=== PATIENT | male | born 1930 | race Caucasian/White ===

== ENCOUNTER → 2017-03-01 | Outpatient (CLI) | payer BC ==
--- NOTE | 2017-03-01 11:28 | DIAGNOSTIC IMAGING REPORT ---
(CHEST) THORAX WITHOUT CT DOSE: 625.69 mGycm CLINICAL HISTORY: 86 years-old Male with ASCENDING AORTA ENLARGEMENT. TECHNIQUE: Multiaxial CT images of the chest were performed without contrast. A dose lowering technique was utilized adhering to the principles of ALARA. COMPARISON: None. FINDINGS: Heterogeneous thyroid with ill-defined low attenuating nodule of the posterior left thyroid lobe measuring 13 x 10 mm. No pathologic-appearing adenopathy about the chest identified. Scattered nonenlarged mediastinal lymph nodes are present. Moderate multichamber cardiac enlargement with three-vessel distribution coronary arterial disease. Calcifications of the aortic annulus are also present. There is fusiform dilation of the ascending thoracic aorta beginning distal to the sinotubular junction measuring 4.7 x 4.6 cm in AP and transverse dimension at the level of the main pulmonary artery. Dilation of the aortic arch and descending thoracic aorta is also present with the mid descending thoracic aorta measuring up to 3.9 x 3.7 cm. Descending thoracic aorta at the level of the diaphragmatic hiatus measures 3.8 x 3.9 cm. Moderate atherosclerosis of the aorta and proximal great vessels. There is limited evaluation of the aorta without the use of IV contrast. No pneumothorax or pleural effusion. Linear subsegmental opacities of the lung bases suggest areas of atelectasis or scarring. No lobar airspace consolidation to suggest pneumonia. 5 mm Fissural lymph node is seen adjacent to the right middle lobe on image 179 series 4. 5 mm noncalcified solid nodule of the right lower lobe as seen on image 208 series 4. 2 mm nodule of the right lower lobe as seen on image 218 series 4. 4 mm solid nodule of the left upper lobe noted on image 103 series 4. 4 mm nodule of the left upper lobe seen on image 107 series 4. Central airways are patent. Mild layering secretions are seen within the tracheobronchial tree. Perifissural lymph nodes node measuring 5 mm as seen on image 184 series 4. No acute abnormality of the imaged upper abdomen. Mild thickening of the left adrenal gland suggests adrenal hyperplasia. Soft tissues are unremarkable. Mild symmetric bilateral gynecomastia. Bones appear intact. Multilevel degenerative changes of the spine. IMPRESSION: 1. Fusiform aneurysmal dilation of the ascending thoracic aorta begins distal to the sinotubular junction measuring up to 4.7 x 4.6 cm in AP and transverse dimension. Additionally, there is dilation of the aortic arch and descending thoracic aorta which measures up to 3.9 cm at the level of the diaphragmatic hiatus. Evaluation is limited without the use of IV contrast. 2. Moderate multichamber cardiomegaly. 3. Multiple solid noncalcified pulmonary nodules are present bilaterally measuring up to 5 mm as above. Benign-appearing perifissural lymph nodes are also seen on the right. Follow-up guidelines provided below. Please refer to below summary of Fleischner criteria recommendations for follow-up of incidental CT nodules (Radu Randall, Guidelines for management of small pulmonary nodules detected on CT scans: A statement from the Fleischner Society, Radiology 237: [id number].) SOLID NODULES Multiple nodules size: <6 mm * Low risk patients: no routine follow-up * high risk patients: optional CT at 12 months Note: newly detected indeterminate nodule in persons 35 years of age or older. * Low risk patients: minimal or absent history of smoking and/or other known risk factors * high risk patients: history of smoking or of other known risk factors (e.g. first degree relative with lung cancer, or exposure to asbestos, radon, uranium) * if a nodule up to 8 mm is partly solid or is ground glass further follow-up is required after 24 months to exclude possible slow growing adenocarcinoma (SREE) The above report was generated using voice recognition software. It may contain grammatical, syntax or spelling errors. Electronically signed by: Osvaldo Laguerre M.D. 03/01/2017 11:27 AM Dictated Date/Time: 03/01/2017 11:17 AM
== END | disposition home or self-care (01) ==
LOC: C.CTS 09:58
PROVIDERS: ATTEND Surgery Vascular Surgery
DX: I77.89 Other specified disorders of arteries and arterioles (principal)

== ENCOUNTER 2018-05-05 09:49 | Inpatient (IN) ==
[2018-05-05] MEDS ORDERED: SODIUM CHLORIDE 0.9% 1000ML 1,000 ML IV SCH (10:00)
[2018-05-05] MEDS ORDERED: MoRPHine SULFATE 4 MG/ML 1 ML CARP\\VIAL IV STA (10:11)
[2018-05-05 10:26] LABS: Basophils # (auto) 0.03 K/uL (0-0.2); Basophils % (auto) 0.3 %; Eosinophils # (auto) 0.08 K/uL (0-0.5); Eosinophils % (auto) 0.8 %; Hematocrit (blood only) 43.1 % (42-52); Hemoglobin 13.8 g/dL (14.0-18.0); Immature Granulocytes # (auto) 0.05 K/uL (0.00-0.02); Immature Granulocytes % (auto) 0.5 %; Lymphocytes # (auto) 0.59 K/uL (1.2-3.4); Lymphocytes % (auto) 5.8 %; Mean Corpuscular Volume 87.4 fL (80-100); Mean Platelet Volume 9.8 fL (7.4-10.4); Monocytes # (auto) 1.41 K/uL (0.11-0.59); Monocytes % (auto) 13.9 %; Neutrophils # (auto) 7.99 K/uL (1.4-6.5); Neutrophils % (auto) 78.7 %; Platelet Count 253 K/uL (130-400); RDW Coefficient of Variation 14.4 % (11.5-14.5); RDW Standard Deviation 46.2 fL (36.4-46.3); Red Blood Count 4.93 M/uL (4.7-6.1); White Blood Count 10.15 K/uL (4.8-10.8)
[2018-05-05 10:36] LABS: INR 1.1 (0.9-1.1); Prothrombin Time 10.9 Seconds (9.0-12.0)
[2018-05-05 10:45] LABS: Alanine Aminotransferase 13 U/L (12-78); Albumin Level 3.2 gm/dl (3.4-5.0); Aspartate Aminotransferase 19 U/L (15-37); BUN Creatinine Ratio 16.6 (10-20); Blood Urea Nitrogen 29 mg/dl (7-18); Calcium 9.4 mg/dl (8.5-10.1); Carbon Dioxide 30 mmol/L (21-32); Chloride 99 mmol/L (98-107); Creatinine Clr Calc Pharmacy 31.9 ml/min; Est GFR (African American) 40.3; Est GFR (Non-African American) 34.7; Glucose 153 mg/dl (70-99); Magnesium 2.2 mg/dl (1.8-2.4); Potassium 4.1 mmol/L (3.5-5.1); Sodium 136 mmol/L (136-145)
[2018-05-05 10:56] LABS: Albumin Globulin Ratio 0.8 (0.9-2); Alkaline Phosphatase 162 U/L (45-117); Globulin 4.1 gm/dl (2.5-4.0); Total Protein 7.3 gm/dl (6.4-8.2); Troponin I < 0.015 ng/ml (0-0.045)
--- NOTE | 2018-05-05 11:02 | XRay Report ---
SINGLE VIEW PELVIS; 3 VIEWS LEFT FEMUR CLINICAL HISTORY: Weakness. Left leg pain. FINDINGS: 3 AP views of the pelvis with AP, frog-leg, and lateral views of the left femur are obtaine d. Correlation is made with PET/CT dated 03/31/2018. The skeletal structures are osteopenic. No fractur e is identified involving the hips or bony pelvis. There is no evidence of left femoral fracture. Mil d to moderate arthritic change and joint space narrowing is seen in the hips. The sacroiliac joints a re normal. A subtle osteolytic lesion is seen within the right pubic ring. Additional osseous lesions seen on the recent PET CT were not clearly identified by x-ray. Lumbosacral spondylosis is partially imaged. No bowel obstruction is identified. The overlying soft tissues are normal in appearance. The re is atherosclerotic calcification of the left femoral artery. IMPRESSION: 1. No acute bony abnormality is identified involving the hips or bony pelvis. 2. There is no radiographic evidence of left femoral fracture. 3. Osteopenia and mild degenerative change as above. 4. A subtle osteolytic lesion is again seen within the right pubic ring. Additional osseous lesions s een on the recent PET CT were not apparent by x-ray. Electronically signed by: Edson Garcia M.D. 05/05/2018 11:01 AM
--- NOTE | 2018-05-05 11:03 | XRay Report ---
XR chest 1V portable CLINICAL HISTORY: weakness COMPARISON STUDY: CT scan dated 02/27/2018 FINDINGS: There is ectasia of the thoracic aorta. The heart is enlarged. There is no failure. There i s no focal pulmonary consolidation. There are no pleural effusions. There is mild interstitial thicke bhavin.[ The numerous bilateral point nodules described in the prior CT scan, are difficult to visualiz e on conventional radiographic imaging. Destructive changes involve the left scapula, suspicious for metastatic disease. IMPRESSION: 1. Cardiomegaly and aortic dilatation 2. Multiple pulmonary nodules which were much better visualized on the prior CT scan. 3. Destructive changes involving the left scapula. 4. No evidence of lobar consolidation. No evidence of failure. Electronically signed by: Nathan Vargas M.D. 05/05/2018 11:01 AM
--- NOTE | 2018-05-05 11:04 | XRay Report ---
LEFT SHOULDER 3 VIEWS HISTORY: l shoulder pain COMPARISON: None. FINDINGS: There is no fracture or dislocation. Soft tissues are unremarkable. No radiopaque foreign b odies. Soft tissues are unremarkable. Mild degenerative changes. Diffuse osteopenia. IMPRESSION: No fracture or dislocation within the left shoulder. Electronically signed by: Fidel Crow M.D. 05/05/2018 11:03 AM
--- NOTE | 2018-05-05 11:20 | CT Scan Report ---
HEAD CT NONCONTRAST CT DOSE: 614.27 mGy.cm HISTORY: Weakness. TECHNIQUE: Multiaxial CT images of the head were performed without the use of intravenous contrast. A utomated exposure control was utilized for this study. A dose lowering technique was utilized adheri ng to the principles of ALARA. Comparison: None. Findings: Small retention cyst within the left maxillary sinus and left sphenoid sinus. The mastoid a ir cells are clear. The calvarium and skull base are intact. There is no mass, hematoma, midline shif t, acute infarct. White matter hypodensity is nonspecific but suggestive of microvascular ischemic ch juan. The ventricles and sulci demonstrate mild age-related involutional changes. Impression: No acute intracranial abnormality. Atrophy and microvascular ischemic changes. Electronically signed by: Fidel Crow M.D. 05/05/2018 11:18 AM
--- NOTE | 2018-05-05 13:37 | History & Physical Report ---
Date of Service May 05, 2018 Assessment & Plan (1) Abnormal EKG: Trop neg x1, serials pending No cardiac hx Takes aspirin 81mg QD for prevention Monitor on tele Repeat EKG in AM ECHO pending (2) Prostate cancer metastatic to bone: Oxycodone is not helpful in doses pt can tolerate Trial of lidocaine patch, t/c fentanyl patch PT/OT Follows with Dr. Barrett if needed (3) ARF (acute renal failure): Last cr was 1.4 on 03/19 Monitor with IVF Likely dehydration related to poor PO intake (4) Fall: PT/OT Ongoing L LE weakness Mets noted on PET Likely will need placement as lives alone (5) Hyperlipidemia: continue home meds (6) HTN (hypertension): continue home meds (7) Skin cancer: Will need sutures d/c'd on (8) DVT prophylaxis: SCDs, Heparin for DVT proph History of Present Illness Primary Care Provider: Ramu Duron, DO 87 y/o M c/o L UE pain and LLE weakness. Pt has been in active tx for metastatic prostate cancer. He is taking chemo for his prostate and just finished radiation for mets to the L scapula last week. He has been having ongoing pain to the L shoulder since October and it has continued to worsen. He was taking oxycodone 5mg TID but this was making him "woozy" and wasn't helping the pain much, so it was changed to 10mg BID. This does not make him woozy, but it is not helping his pain. Ability to use his L UE is limited due to pain. He also started having L LE pain starting in the buttock and moving into the LE. He was sent to therapy and it was noted that he had a rather large wallet on the L side. He stopped carrying this and completed a course of PT, however still having pain. He has had progressive weakness to the L LE as well. He can mangage around his home, but has to move slowly. He has stairs in his home and he can manage those slowly and one step at a time. He has difficulty going to the grocery or other stores with a lot of walking. His R UE and R LE are WNL. His weakness has progressed to where he fell this AM and could not get up for some time. He is also having difficulty getting in and out of the shower. Pt lives alone. Pt states his appetite is very decreased due to no taste. He has just started Boost and is tolerating those. He has no other GI issues. Pt denies fever, SOB, chest pain, abd pain, n/v/c/d, LE swelling. Pt had a skin cancer removed recently with Dr. Holden. Sutures are to come out . Allergies Allergy/AdvReac Type Severity Reaction Status Date / Time No Known Allergies Allergy Unverified 05/05/18 10:55 Home Medications Home Medications Medication Instructions Recorded Confirmed Type Centrum Silver 1 tab PO DAILY 04/01/18 05/05/18 History amlodipine 5 mg PO DAILY 04/01/18 05/05/18 History aspirin [Aspirin Low Dose] 81 mg PO DAILY 04/01/18 05/05/18 History losartan 100 mg PO DAILY 04/01/18 05/05/18 History metoprolol succinate [Toprol XL] 100 mg PO DAILY 04/01/18 05/05/18 History naproxen-diphenhydramine [Aleve PM] 2 tab PO PM PRN 04/01/18 05/05/18 History omega 5-ngs-gla-fish oil [Fish Oil] 1 tab PO DAILY 04/01/18 05/05/18 History oxycodone 5 mg tablet 5 mg PO Q6H PRN #28 tab 04/15/18 05/05/18 Rx Past Med/Surg History Medical History Cataract (Acute) BILATERAL EYES / 10 yrs ago Aneurysm artery, pulmonary (Acute) History of tooth extraction (Acute) Hyperlipidemia (Acute) Hypertension (Acute) 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 Daughter No problems noted. Social History Preferred Language: [place] Beliefs That Will Affect Care: None Current Living Situation: Alone current occupational status: retired current occupation: retired worked at [employer] Fe[employer] Safe at Home: Yes Smoking Status: Never smoker Hx Alcohol Use: No Hx Substance Use: No Review of Systems Pertinent positives and negatives reviewed in HPI--all others negative Physical Exam Vital Signs (Past 24 Hours): Last Vital Signs Temp 36.8 C 05/05/18 09:52 Pulse 100 H 05/05/18 11:24 Resp 18 05/05/18 11:24 BP 131/80 05/05/18 11:24 Pulse Ox 90 05/05/18 11:24 Constitutional: WD/WN, vitals as above Eyes: normal visual elias by confrontation and + anicteric sclerae Neck: normal visual inspection and trachea midline Respiratory: normal respiratory effort, lungs clear to auscultation Cardiovascular: Rate/Rhythm: regular rate and regular rhythm Gastrointestinal (Abdomen): Inspection/Auscultation: abdomen not distended Percussion/Palpation: abdomen soft; abdomen nontender Musculoskeletal: Head/Neck/Chest: normocephalic and head atraumatic negative for edema, peripheral pulses intact Rein[employer] strength 5/5 R UE, 4/5 L UE R LE flexion at the hip against resistance is 5/5, L LE is 3/5 R LE dorsiflexion at the ankle is 3/5, L LE is 5/5, plantar flexion is 5/5 b/l Unable to use L UE to pull himself up due to pain Skin: no rashes, warm and dry Neurologic: awake; not confused Speech / Cognition: normal speech Psychiatric: A+Ox3, euthymic affect Results & Data Diagnostic Findings CT head: neg for acute CXR: neg for acute, but does show pulm nodule and L scapular lesion L shoulder XR: neg for acute R femur and pelvis XR: no fracture, does not a R pubic ring osteolytic lesion and notes there are other lesions seen on PET that are not noted on XR ECG Additional Comments: ST depression lateral lead, sinus tachy Code Status & VTE Plan Code Status DNR/DNI per pt, multiple family members present and agree VTE Prophylaxis Plan VTE Prophylaxis will be ordered: Yes
--- NOTE | 2018-05-05 15:55 | Emergency Department Note ---
Entered by Preet Mobley acting as a scribe for Blair Silverio DO History of Present Illness General Chief complaint: Referred by Doctor Stated complaint: DOCTOR REFERRED Source: patient History of Present Illness Provider complaint: weakness Onset (ago): month(s) 5 Location: upper extremity (shoulders) and lower extremity (left leg) Pain Consistency: + constant Maximum Pain Intensity: 10 Current Pain Intensity: 10 Quality: + other (weakness) Associated symptoms: + denies other symptoms (abdominal pain, diarrhea, rh inorrhea) and + other (pain in left hip and shoulders); no nausea/vomiting The patient is an 87 year old male who presents to the Emergency Room with complaints of left leg weakness that has been going on for 5 months. The patient states that he has been being treated for prostate cancer and reports experiencing pain in his left hip and leg as well as his shoulders that he rates as a 10/10 in severity. The patient reports he was receiving treatments on his shoulder which ended last week. He states that due to his weakness in his left leg, he is unable to stand up or get into bed. The patient reports he was in Physical Therapy for 8 weeks, but reports it did not help. He denies any abdominal pain, nausea, vomiting, diarrhea, or rhinorrhea. The patient admits to an occasional cough in the morning, but states that is normal. Home Medications Home Medications Medication Instructions Recorded Confirmed Type Centrum Silver 1 tab PO DAILY 04/01/18 05/05/18 History amlodipine 5 mg PO DAILY 04/01/18 05/05/18 History aspirin [Aspirin Low Dose] 81 mg PO DAILY 04/01/18 05/05/18 History losartan 100 mg PO DAILY 04/01/18 05/05/18 History metoprolol succinate [Toprol XL] 100 mg PO DAILY 04/01/18 05/05/18 History naproxen-diphenhydramine [Aleve PM] 2 tab PO PM PRN 04/01/18 05/05/18 History omega 4-yky-gog-fish oil [Fish Oil] 1 tab PO DAILY 04/01/18 05/05/18 History oxycodone 5 mg tablet 5 mg PO Q6H PRN #28 tab 04/15/18 05/05/18 Rx Allergies Allergy/AdvReac Type Severity Reaction Status Date / Time No Known Allergies Allergy Unverified 05/05/18 10:55 Past Med/Surg History Medical History Cataract (Acute) BILATERAL EYES / 10 yrs ago Aneurysm artery, pulmonary (Acute) History of tooth extraction (Acute) Hyperlipidemia (Acute) Hypertension (Acute) 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 Daughter No problems noted. Social History Preferred Language: Divehi Beliefs That Will Affect Care: None Current Living Situation: Alone current occupational status: retired current occupation: retired worked at [employer] Feels Safe at Home: Yes Smoking Status: Never smoker Hx Alcohol Use: No Hx Substance Use: No Review of Systems See HPI for pertinent positives & negatives. and A total of 10 systems reviewed and were otherwise negative Physical Exam Vital Signs Vital Signs - 24 hr 05/05/18 09:52 05/05/18 10:14 05/05/18 10:16 Temperature 36.8 C Temperature Source Oral Oral Sepsis Recent Fever Within 48 Hours No Sepsis Action Taken by Nursing No Action Required Pulse Rate 117 H Pulse Rate [Apical] Respiratory Rate 20 Respiratory Effort / Characteristics Non-Labored Spontaneous Respiratory Depth Normal Respiratory Pattern Regular Blood Pressure 134/71 Blood Pressure [Left Arm] Blood Pressure Mean 92 Blood Pressure Mean [Left Arm] Pulse Oximetry 93 93 Oxygen Delivery Method Room Air Room Air 05/05/18 11:24 05/05/18 13:30 05/05/18 15:07 Temperature Temperature Source Sepsis Recent Fever Within 48 Hours Sepsis Action Taken by Nursing Pulse Rate 100 H Pulse Rate [Apical] 100 H 105 H Respiratory Rate 18 20 20 Respiratory Effort / Characteristics Respiratory Depth Respiratory Pattern Blood Pressure 120/65 Blood Pressure [Left Arm] 131/80 122/67 Blood Pressure Mean Blood Pressure Mean [Left Arm] 97 85 Pulse Oximetry 90 93 93 Oxygen Delivery Method Room Air Room Air Room Air GENERAL: Sitting up in bed, alert, chronically ill-appearing, well nourished, no distress, non-toxic EYE EXAM: normal conjunctiva. PERRL and EOM's grossly intact. OROPHARYNX: no exudate, no erythema, lips, buccal mucosa, and tongue normal and mucous membranes are moist NECK: supple, no nuchal rigidity, no adenopathy, non-tender LUNGS: Clear to auscultation. Normal chest wall mechanics HEART: no murmurs, S1 normal and S2 normal ABDOMEN: abdomen soft, non-tender, normo-active bowel, sounds, no masses, no rebound or guarding. BACK: Back is symmetrical on inspection and there is no deformity, no midline tenderness, no CVA tenderness. SKIN: no rashes and no bruising UPPER EXTREMITIES: upper extremities are grossly normal. Significant pain with range of motion of left humerus. LOWER EXTREMITIES: No pitting edema. Significant pain with range of motion of left proximal femur. NEURO EXAM: Normal sensorium, cranial nerves II-XII intact, normal speech, no weakness of arms, no weakness of legs. No drift. Finger to noseintact. Gross sensation intact. Course ED COURSE: Vital signs were reviewed and showed the patient was normotensive and ta chycardic. The patients medical record was reviewed The above diagnostic studies were performed and reviewed. ED treatments and interventions as stated above. 1004: The patient was evaluated in room A12B. A complete history and physical examination was performed. 1212: I reviewed the patient's case [facility] will evaluate the patient for further management. 1216: Upon reevaluation, the patient is resting comfortably. I discussed my findings with the patient and he understands and agrees with the treatment plan. Based on the patients age, coexisting illnesses, exam and lab findings the decision to treat as an inpatient was made. The patient remained stable while under my care. The patient will be evaluated for further management. Consultations Consultation #1: [facility] Lockwood [facility] Time: 12:12 Administered Medications Discontinued Medications Sodium Chloride (Nss 1000ml) 1,000 mls @ 999 mls/hr IV .Q1H1M EL Stop: 05/05/18 11:00 Last Infusion: 05/05/18 11:35 Dose: 0 mls/hr Documented by: [id number] Admin: 05/05/18 10:22 Dose: 999 mls/hr Documented by: [id number] Morphine Sulfate (Morphine Sulfate) 3 mg IV NOW STA Stop: 05/05/18 10:12 Last Admin: 05/05/18 10:22 Dose: 3 mg Documented by: [id number] Medical Decision Making Differential Diagnosis Differential diagnosis: Etiologies such as metabolic, infection, hypo/hyperglycemia, electrolyte abn ormalities, cardiac sources, intracerebral event, toxicologic, neurologic, as well as others were entertained. Medical Records Attestation: I reviewed the patient's medical records. Home Medications Current Medication List: was personally reviewed by me Laboratory Data Attestation: I reviewed the patient's lab results. Result diagrams: 05/05/18 10:18 05/05/18 10:18 Lab Results 05/05/18 05/05/18 05/05/18 Range/Units 10:18 10:18 10:18 WBC 10.15 (4.8-10.8) K/uL RBC 4.93 (4.7-6.1) M/uL Hgb 13.8 L (14.0-18.0) g/dL Hct 43.1 (42-52) % MCV 87.4 (80-100) fL MCH 28.0 (25-34) pg MCHC 32.0 (32-36) g/dL RDW Std Deviation 46.2 (36.4-46.3) fL RDW Coeff of Salo 14.4 (11.5-14.5) % Plt Count 253 (130-400) K/uL MPV 9.8 (7.4-10.4) fL Immature Gran % (Auto) 0.5 % Neut % (Auto) 78.7 % Lymph % (Auto) 5.8 % Real % (Auto) 13.9 % Eos % (Auto) 0.8 % Baso % (Auto) 0.3 % Immature Gran # (Auto) 0.05 H (0.00-0.02) K/uL Neut # (Auto) 7.99 H (1.4-6.5) K/uL Lymph # (Auto) 0.59 L (1.2-3.4) K/uL Real # (Auto) 1.41 H (0.11-0.59) K/uL Eos # (Auto) 0.08 (0-0.5) K/uL Baso # (Auto) 0.03 (0-0.2) K/uL PT 10.9 (9.0-12.0) Seconds INR 1.1 (0.9-1.1) Sodium 136 (136-145) mmol/L Potassium 4.1 (3.5-5.1) mmol/L Chloride 99 (98-107) mmol/L Carbon Dioxide 30 (21-32) mmol/L Anion Gap 7.0 (3-11) BUN 29 H (7-18) mg/dl Creatinine 1.75 H (0.6-1.4) mg/dl Est Cr Clr Drug Dosing 31.9 ml/min Est GFR ( Amer) 40.3 Est GFR (Non-Af Amer) 34.7 BUN/Creatinine Ratio 16.6 (10-20) Glucose 153 H (70-99) mg/dl Calcium 9.4 (8.5-10.1) mg/dl Magnesium 2.2 (1.8-2.4) mg/dl Total Bilirubin 1.0 (0.2-1) mg/dl AST 19 (15-37) U/L ALT 13 (12-78) U/L Alkaline Phosphatase 162 H (45-117) U/L Troponin I < 0.015 (0-0.045) ng/ml Total Protein 7.3 (6.4-8.2) gm/dl Albumin 3.2 L (3.4-5.0) gm/dl Globulin 4.1 H (2.5-4.0) gm/dl Albumin/Globulin Ratio 0.8 L (0.9-2) TSH 0.745 (0.300-4.500) uIu/ml Imaging Data Radiologist's Impression: Radiology results as stated below per my review and the radiologist's interpretation: LEFT SHOULDER 3 VIEWS HISTORY: l shoulder pain COMPARISON: None. FINDINGS: There is no fracture or dislocation. Soft tissues are unremarkable. No radiopaque foreign bodies. Soft tissues are unremarkable. Mild degenerative changes. Diffuse osteopenia. IMPRESSION: No fracture or dislocation within the left shoulder. Electronically signed by: Fidel Crow M.D. 05/05/2018 11:03 AM SINGLE VIEW PELVIS; 3 VIEWS LEFT FEMUR CLINICAL HISTORY: Weakness. Left leg pain. FINDINGS: 3 AP views of the pelvis with AP, frog-leg, and lateral views of the left femur are obtained. Correlation is made with PET/CT dated 03/31/2018. The skeletal structures are osteopenic. No fracture is identified involving the hips or bony pelvis. There is no evidence of left femoral fracture. Mild to moderate arthritic change and joint space narrowing is seen in the hips. The sacroiliac joints are normal. A subtle osteolytic lesion is seen within the right pubic ring. Additional osseous lesions seen on the recent PET CT were not clearly identified by x-ray. Lumbosacral spondylosis is partially imaged. No bowel obstruction is identified. The overlying soft tissues are normal in appearance. There is atherosclerotic calcification of the left femoral artery. IMPRESSION: 1. No acute bony abnormality is identified involving the hips or bony pelvis. 2. There is no radiographic evidence of left femoral fracture. 3. Osteopenia and mild degenerative change as above. 4. A subtle osteolytic lesion is again seen within the right pubic ring. Additional osseous lesions seen on the recent PET CT were not apparent by x-ray. Electronically signed by: Edson Garcia M.D. 05/05/2018 11:[address] CT DOSE: 614.27 mGy.cm HISTORY: Weakness. TECHNIQUE: Multiaxial CT images of the head were performed without the use of intravenous contrast. Automated exposure control was utilized for this study. A dose lowering technique was utilized adhering to the principles of ALARA. Comparison: None. Findings: Small retention cyst within the left maxillary sinus and left sphenoid sinus. The mastoid air cells are clear. The calvarium and skull base are intact. There is no mass, hematoma, midline shift, acute infarct. White matter hypodensity is nonspecific but suggestive of microvascular ischemic change. The ventricles and sulci demonstrate mild age-related involutional changes. Impression: No acute intracranial abnormality. Atrophy and microvascular ischemic changes. Electronically signed by: Fidel Crow M.D. 05/05/2018 11:18 AM SINGLE VIEW PELVIS; 3 VIEWS LEFT FEMUR CLINICAL HISTORY: Weakness. Left leg pain. FINDINGS: 3 AP views of the pelvis with AP, frog-leg, and lateral views of the left femur are obtained. Correlation is made with PET/CT dated 03/31/2018. The skeletal structures are osteopenic. No fracture is identified involving the hips or bony pelvis. There is no evidence of left femoral fracture. Mild to moderate arthritic change and joint space narrowing is seen in the hips. The sacroiliac joints are normal. A subtle osteolytic lesion is seen within the right pubic ring. Additional osseous lesions seen on the recent PET CT were not clearly identified by x-ray. Lumbosacral spondylosis is partially imaged. No bowel obstruction is identified. The overlying soft tissues are normal in appearance. There is atherosclerotic calcification of the left femoral artery. IMPRESSION: 1. No acute bony abnormality is identified involving the hips or bony pelvis. 2. There is no radiographic evidence of left femoral fracture. 3. Osteopenia and mild degenerative change as above. 4. A subtle osteolytic lesion is again seen within the right pubic ring. Additional osseous lesions seen on the recent PET CT were not apparent by x-ray. Electronically signed by: Edson Garcia M.D. 05/05/2018 11:01 AM XR chest 1V portable CLINICAL HISTORY: weakness COMPARISON STUDY: CT scan dated 02/27/2018 FINDINGS: There is ectasia of the thoracic aorta. The heart is enlarged. There is no failure. There is no focal pulmonary consolidation. There are no pleural effusions. There is mild interstitial thickening.[ The numerous bilateral point nodules described in the prior CT scan, are difficult to visualize on conventional radiographic imaging. Destructive changes involve the left scapula, suspicious for metastatic disease. IMPRESSION: 1. Cardiomegaly and aortic dilatation 2. Multiple pulmonary nodules which were much better visualized on the prior CT scan. 3. Destructive changes involving the left scapula. 4. No evidence of lobar consolidation. No evidence of failure. Electronically signed by: Nathan Vargas M.D. 05/05/2018 11:01 AM ECG Data Attestation: I personally reviewed and interpreted this ECG as follows: Indication: weakness Rate (beats per minute): 105 Rhythm: sinus tachycardia Findings: + ST depression (in lateral leads) and + left axis deviation Comparison ECG Date: from (12/29/08) Change: the following changes noted (ST changes are new in lateral leads and worsening in septal) Blood Pressure Blood Pressure Findings: Normal blood pressure Blood Pressure Disposition: did not require urgent referral MDM Narrative Patient is an 87-year-old male who presents the ER for weakness and the inability to get out of his chair. He has a past medical history of metastatic prostate cancer. Significant pain in the left hip and left shoulder. Labs show no significant leukocytosis or anemia. INR was unremarkable. BMP with a creatinine that slightly elevated at 1.75 off of 1.4. Bilirubin LFTs were normal. Troponin was negative. TSH was unremarkable. X-ray of the left shoulder confirms metastatic disease to the left scapula which I do favor his contribute into his pain. He does have some metastatic disease to the left pelvic region. Pelvis and femur are otherwise negative. CT of the head and chest x-ray were unremarkable. Patient's EKG did have new ST segment depressions in the lateral leads. He has no chest pain or shortness of breath. Uncertain of the true cause of this at this time. This in combination with his weakness and inability get up which I do believe is mostly muscle skeletal I did discuss the case with the hospitalist as he cannot go home at this time. They evaluated him for further management for admission. Impression & Plan Acute electrocardiogram changes, Weakness, Metastatic cancer, Acute kidney injury Discharge Plan Visit Data *Final* Discharge Date/Time: 05/05/18 15:07 Chief Complaint: Referred by Doctor Stated Complaint: DOCTOR REFERRED ED Provider: Blair Silverio Discharge Problem: Acute electrocardiogram changes, Weakness, Metastatic cancer, Acute kidney injury Patient Disposition: Admitted As Inpatient Discharge Instructions Interventions: ED Discharge Assessment Last Done: 05/05/18 15:07 The scribe's documentation has been prepared under my direction and personally reviewed by me in its entirety. I confirm that the note above accurately reflects all work, treatment, procedures, and medical decision making performed by me.
[2018-05-05] MEDS ORDERED: MAGNESIUM HYDROXIDE SUSP 30 ML UDC PO PRN (16:01)
[2018-05-05] MEDS ORDERED: ACETAMINOPHEN 325 MG TAB PO PRN (16:01)
[2018-05-05] MEDS ORDERED: ONDANSETRON INJ 2 MG/ML 2 ML VIAL IV PRN (16:01)
[2018-05-05] MEDS ORDERED: NAPROXEN PO PRN (16:01)
[2018-05-05] MEDS ORDERED: DIPHENHYDRAMINE PO PRN (16:01)
[2018-05-05] MEDS: LIDOCAINE 5% 1 PATCH TD SCH (17:09)
[2018-05-05] MEDS: SODIUM CHLORIDE 0.9% 1000ML 1,000 ML IV SCH (17:11)
[2018-05-05] MEDS: HEPARIN SOD 5,000 UNIT/0.5 ML VIAL SQ SCH ×2 (18:08→22:21)
[2018-05-05] MEDS: OXYCODONE HCL IR 5 MG TAB (IMMEDIATE RELEASE) PO PRN (23:02)
[2018-05-06 02:52] LABS: Appearance Urine Clear (Clear); Bacteria Urine Automated Negative (Negative); Bilirubin Urine Negative (Negative); Blood Urine 1+ (Negative); Color Urine Dark Yellow; Epithelial Cell Urine Auto 0-5 /lpf (0-5); Glucose Urine UA Negative (Negative); Ketones Urine 1+ (Negative); Leukocyte Esterase Urine Negative (Negative); Nitrite Urine Negative (Negative); Protein Urine Negative (Negative); Specific Gravity Urine 1.021 (1.000-1.030); Urobilinogen Urine Negative (Negative)
[2018-05-06] MEDS: HEPARIN SOD 5,000 UNIT/0.5 ML VIAL SQ SCH ×3 (06:26→21:52)
[2018-05-06] MEDS: SODIUM CHLORIDE 0.9% 1000ML 1,000 ML IV SCH ×2 (06:27→21:48)
[2018-05-06 07:12] LABS: BUN Creatinine Ratio 20.3 (10-20); Calcium 8.6 mg/dl (8.5-10.1); Creatinine Clr Calc Pharmacy 47.7 ml/min; Est GFR (African American) 65.5; Est GFR (Non-African American) 56.5; Potassium 3.9 mmol/L (3.5-5.1)
[2018-05-06] MEDS ORDERED: PERFLUTREN LIPID MICROSPHERE (DEFINITY) IV ONE (07:22)
[2018-05-06] MEDS: OXYCODONE HCL IR 5 MG TAB (IMMEDIATE RELEASE) PO PRN (07:36)
[2018-05-06] MEDS: CEROVITE ADV FORMULA TAB PO SCH (07:38)
[2018-05-06] MEDS: OMEGA-3 (PURIFIED FISH OIL) 1 GM CAP PO SCH (07:38)
[2018-05-06] MEDS: METOPROLOL SUCC 50MG EXT REL TAB PO SCH (07:39)
[2018-05-06] MEDS: LOSARTAN POTASSIUM 50 MG TAB PO SCH (07:39)
[2018-05-06] MEDS: AMLODIPINE BESYLATE 5 MG TAB PO SCH (07:40)
[2018-05-06] MEDS: ASPIRIN 81 MG ECTAB PO SCH (07:40)
[2018-05-06] MEDS ORDERED: GADOBUTROL 65ML VIAL IV PRN (12:52)
[2018-05-06] MEDS: LIDOCAINE 5% 1 PATCH TD SCH (13:29)
[2018-05-06] MEDS: DEXAMETHASONE SOD PHOSPHATE 4 MG in SYRINGE 0 ML IV SCH ×3 (13:30→23:38)
[2018-05-06] MEDS: ACETAMINOPHEN 500 MG TAB PO SCH ×2 (13:34→21:49)
--- NOTE | 2018-05-06 13:35 | Magnetic Resonance Report ---
MR lumbar spine wo/w con CLINICAL HISTORY: Prostate carcinoma. Left leg weakness. Possible bone metastasis. TECHNIQUE: Sagittal and axial T1, T2 and STIR images were obtained. Images were acquired before and a fter the administration of 8 cc of intravenous Gadavist. COMPARISON STUDY: PET/CT scan dated March 31, 2018 OBSERVATIONS: There are geographic areas of marrow replacement involving the T12, L2, L4, L5, and S1 vertebra. The largest lesion is at the L2 level which measures 29 mm. There is also involvement of the right L3 tra nsverse process, and right L4 pedicle. Lesions involving both iliac bones are partially visualized.. L1-2: No disc protrusions or extrusions. No evidence of spinal canal or neural foraminal compromise. L2-3: There is a mild circumferential disc bulge. There is mild spinal stenosis. There is no signific ant foraminal narrowing L3-4: There is a mild circumferential disc bulge. There is no significant spinal or foraminal stenosi s. L4-5: There is a small annular fissure and small broad-based disc bulge. There is minimal spinal bhumi l narrowing. There is mild facet joint arthropathy. There is minor left-sided foraminal narrowing. L5-S1: No disc protrusions or extrusions. No evidence of spinal canal or neural foraminal compromise. Postcontrast images reveal enhancement of the multiple areas of marrow replacement consistent with ne oplasm. There is no evidence for epidural tumor spread. There is enhancement of the right paraspinal musculature at the L4-L5 levels, likely secondary to neoplasm. There is soft tissue enhancement surro unding the right L4 nerve root. IMPRESSION: 1. Multilevel spondylitic changes 2. Multifocal areas of marrow replacement involving the lower thoracic spine, lumbar spine and sacrum , and iliac bones consistent with extensive multifocal metastasis 3. No evidence of definitive epidural tumor extension 4. Enhancement of the right paraspinal musculature at the L4-L5 level as well as enhancement surround ing the right L4 nerve root. Electronically signed by: Nathan Vargas M.D. 05/06/2018 1:34 PM
--- NOTE | 2018-05-06 13:59 | CT Scan Report ---
CT hip LT wo con CT DOSE: 421.65 mGy.cm HISTORY: Pain left hip pain, bony mets from prostate ca TECHNIQUE: Multiaxial CT images of the left hip were performed and reformatted in the sagittal and co milind plane without the use of contrast. A dose lowering technique was utilized adhering to the prin ciples of FRANCISCO. COMPARISON: PET/CT 03/31/2018 FINDINGS: Findings of generalized osteopenia. Superimposed potential lytic defects of the superior le ft acetabulum measuring 1.1 and 1.7 cm. A potential additional medial left acetabular lytic defect me asuring 2.2 cm. No evidence for fracture. No evidence for acetabular protrusion. IMPRESSION: 1. Diffuse osteopenia. 2. Potential superimposed lytic defects of the left acetabulum. 3. No evidence for pathologic fracture. The above report was generated using voice recognition software. It may contain grammatical, syntax or spelling errors. Electronically signed by: John Madera M.D. 05/06/2018 1:58 PM
--- NOTE | 2018-05-06 16:17 | Medical Student Progress Note ---
Date of Service May 06, 2018 Assessment & Plan (1) Prostate cancer metastatic to bone: 87yo M with prostate cancer metastatic to bone (current chemo and previous radiation therapy for pain), HTN, and HLD presented at ED with L UE pain and LLE pain and weakness. Left hip pain leading to under use/deconditioning of LLE, which may account for the weakness the pt is experiencing (relative to his normal strength); pt assessed to have good gross LE strength will need to develop adequate pain medication regime; radiation therapy an option for the left hip (just ended radiation therapy of the left scapula); perhaps consult radiation oncology and orthopedics Hip CT showed bone met in left acetabulum, but not pathologic fx Lumbar spine MRI shows letha mets (2) Abnormal EKG: EKG showed some non-specific ST and T wave ab no elevated troponins (<0.015, 0.023, 0.023) clinically pt is not experiencing any CP, palpitations, or SOB Subjective 87yo M with prostate cancer metastatic to bone (current chemo and previous radiation therapy for pain), HTN, and HLD presented at ED with L UE pain and LLE pain and weakness. 9/10 left hip pain for several weeks-- pt stated weakness of LLE is what brought him into hospital. left shoulder pain (received radiation therapy to area)-- has pain, but is stable (ie not worsening or improving). initial concern for abnormal EKG (nonspecific ST and T wave changes)-- pt has not CP, palpitations, or SOB No f/c/n/v GENERAL, CONSTITUTIONAL- No Fever, Chills HEART, CARDIOVASCULAR- No Chest pain or pressure, Arrhythmia or palpitations, Shortness of breath, Peripheral edema RESPIRATORY- No Cough, Shortness of breath with activity, no Wheezing GASTROINTESTINAL- no abd pain, no Heartburn, or Bloody stool SKIN & INTEGUMENTARY- No Rashes, Sores, Blisters, Growths MUSCULOSKELETAL- L UE pain; LLE pain and weakness Physical Exam Vital Signs (Past 24 Hours): Last Vital Signs Temp 36.5 C 05/06/18 15:00 Pulse 72 05/06/18 15:00 Resp 23 05/06/18 15:00 BP 125/63 05/06/18 15:00 Pulse Ox 92 05/06/18 15:00 Physical Exam: GENERAL: cooperative, no acute distress HEENT: Mouth: Moist mucous membranes, no lesions. Nervous System: Mental status: Alert and oriented x 3, good concentration. Motor: Strength 5/5 in UE; 5/5 in LE; sensation to light touch at distal extremities intact Chest/Lung: Clear to auscultation bilaterally No rales, rhonchi, wheezing, or rubs. Heart: Regular rate and rhythm. Normal S1, S2, but distant No murmurs, rubs, or gallops. Abdomen: NTND, BS+ Extremities: no LE edema
--- NOTE | 2018-05-06 19:56 | Hospitalist Progress Note ---
Date of Service May 06, 2018 Assessment & Plan (1) Left leg pain: The patient's left leg pain is likely multifactorial in origin. He has numerous bony metastases from his prostate cancer in the lumbar spine, left SI joint, and the left femur near the hip joint. A PET scan dated March 2018 showed these extensive metastases. I repeated an MRI of the lumbar spine today to exclude neurological compromise from the bony metastases. This did not show any nerve entrapment or spinal cord impingement. It did show similar findings to the PET scan that was done in March. I also performed a CT of the left hip to exclude any pathological fracture as well as any specific metastases that could be contributing to his pain. Fortunately the CT of the left hip did not show any fracture. At this time will start intravenous Decadron to help with pain control in addition to his oxycodone. I have spoken to Dr. Aldo Day with [facility] who will consult in the morning and try to determine if the patient's current pain symptoms are due to the L-spine mets or the SI joint mets. Certainly pain from the bony metastases of the femur could be contributing but is felt to be less likely. Additionally I have asked Dr. Beti Quezada from radiation oncology to consult to determine if additional radiation treatment should be pursued for pain control. Over the course of this hospitalization will adjust his pain medications as well as the Decadron. Present on Admission?: Yes (2) Prostate cancer metastatic to bone: The patient has extensive bony metastases from his prostate cancer. This is well documented in the medical record and is well seen on numerous imaging studies. Present on Admission?: Yes (3) Acute kidney injury: The patient's acute kidney injury is already improving with IV hydration. I suspect the acute kidney injury was prerenal in origin. Since the CAMPOS is already improving we can resume his losartan. Continue IV hydration and repeat basic metabolic panel in the morning. (4) Abnormal EKG: Although the patient's presenting EKG showed anterior ST changes, the patient never had ischemic symptoms such as chest pain or dyspnea. Furthermore his troponins have all been negative to date. Echocardiogram revealed a hyperdynamic LV with normal LV wall motion. He continues to not have any cardiac symptoms and will continue to monitor at this time. Telemetry today has also been normal. Present on Admission?: Yes (5) HTN (hypertension): Continue all home blood pressure medications. (6) DVT prophylaxis: Heparin 5000 units subcutaneous 3 times daily. I updated the patient's daughter as well as son at bedside today on 2 separate occasions. We will ask PT and OT to evaluate him while hospitalized. Subjective The patient's main complaint today is that of left buttock and left leg pain. The pain starts in the left buttock and radiates to the left lateral leg. The pain ends just superior to the left knee. He denies any numbness or tingling. He denies any pain with flexion of the left hip. He denies any pain or weakness of the right leg. Despite taking oxycodone at home his pain has persisted. He just recently completed a round of radiation for bony metastases to his left scapula. He is under the care of Dr. Beti Quezada of radiation oncology. He denies any recent injury to the back or left leg. Constitutional: no fever Respiratory: no cough and no dyspnea Cardiovascular: no chest pain Gastrointestinal: no abdominal pain Physical Exam Vital Signs (Past 24 Hours): Last Vital Signs Temp 36.5 C 05/06/18 15:00 Pulse 80 05/06/18 16:00 Resp 23 05/06/18 15:00 BP 125/63 05/06/18 15:00 Pulse Ox 92 05/06/18 15:00 Constitutional: well developed, well nourished and average body habitus; no acute distress and not ill appearing ENMT: external ear and nose normal, oropharynx normal Respiratory: normal respiratory effort, lungs clear to auscultation Cardiovascular: Rate/Rhythm: regular rate and regular rhythm Heart Sounds: normal S1, normal S2 and + murmur (1 out of 6 systolic murmur heard best at the right upper sternal border) Vessels: no JVD Gastrointestinal (Abdomen): normal bowel sounds, soft, nontender, no hepatosplenomegaly Musculoskeletal: The patient has mild tenderness to palpation over the lumbar spine. He also has pain and tenderness over the left SI joint. Flexion of the left hip fails to reproduce any discomfort. He does have mild pain on the left lateral aspect of the thigh with internal and external rotation of the left hip. There is no tenderness over the trochanteric bursal site on the left thigh. With passive range of motion of the right hip there is no pain or tenderness. Neurologic: deep tendon reflexes 2+ bilaterally; no focal motor deficits Psychiatric: A+Ox3, euthymic affect Results & Data Laboratory Results Laboratory Results - last 24 hr 05/05/18 05/06/18 05/06/18 22:12 02:40 06:20 Sodium 136 Potassium 3.9 Chloride 102 Carbon Dioxide 25 Anion Gap 9.0 BUN 24 H Creatinine 1.17 D Est Cr Clr Drug Dosing 47.7 Est GFR ( Amer) 65.5 Est GFR (Non-Af Amer) 56.5 BUN/Creatinine Ratio 20.3 H Glucose 96 Calcium 8.6 Troponin I 0.023 Urine Color Dark Yellow Urine Appearance Clear Urine pH 5.0 Ur Specific [place] 1.021 Urine Protein Negative Urine Glucose (UA) Negative Urine Ketones 1+ H Urine Blood 1+ H Urine Nitrite Negative Urine Bilirubin Negative Urine Urobilinogen Negative Ur Leukocyte Esterase Negative Urine WBC (Auto) 1-5 Urine RBC (Auto) 10-30 H U Hyaline Cast (Auto) 1-5 U Epithel Cells (Auto) 0-5 Urine Bacteria (Auto) Negative (1) HTN (hypertension) Hypertension type: essential hypertension Qualified Code(s): I10 - Essential (primary) hypertension
[2018-05-07] MEDS: DEXAMETHASONE SOD PHOSPHATE 4 MG in SYRINGE 0 ML IV SCH ×3 (06:07→17:53)
[2018-05-07] MEDS: HEPARIN SOD 5,000 UNIT/0.5 ML VIAL SQ SCH ×3 (06:07→20:32)
[2018-05-07 07:33] LABS: BUN Creatinine Ratio 20.3 (10-20); Calcium 8.7 mg/dl (8.5-10.1); Creatinine Clr Calc Pharmacy 50.2 ml/min; Est GFR (African American) 69.8; Est GFR (Non-African American) 60.2; Potassium 4.4 mmol/L (3.5-5.1)
[2018-05-07] MEDS: CEROVITE ADV FORMULA TAB PO SCH (08:04)
[2018-05-07] MEDS: AMLODIPINE BESYLATE 5 MG TAB PO SCH (08:04)
[2018-05-07] MEDS: OMEGA-3 (PURIFIED FISH OIL) 1 GM CAP PO SCH (08:05)
[2018-05-07] MEDS: METOPROLOL SUCC 50MG EXT REL TAB PO SCH (08:05)
[2018-05-07] MEDS: LOSARTAN POTASSIUM 50 MG TAB PO SCH (08:05)
[2018-05-07] MEDS: LIDOCAINE 5% 1 PATCH TD SCH (08:06)
[2018-05-07] MEDS: ACETAMINOPHEN 500 MG TAB PO SCH ×3 (08:06→20:33)
[2018-05-07] MEDS: ASPIRIN 81 MG ECTAB PO SCH (08:06)
--- NOTE | 2018-05-07 08:44 | Radiation OncologyConsultation ---
Date of Consultation May 07, 2018 Assessment & Plan (1) Prostate cancer metastatic to bone: Assessment: Mr. Gann is an 87-year-old gentleman who presents with metastatic prostate cancer. He was recently treated with palliative radiation therapy to the left scapula and completed treatment on 05/01/2018. Unfortunately, the patient was admitted to the hospital for significant pain involving his left hip which there is evidence for metastatic disease as well. We have been asked to evaluate him for consideration of palliative external beam radiation therapy. Recommendation: Palliative external beam radiation therapy to the left pelvis. Plan: Patient will be brought down today for CT simulation for treatment planning for radiation therapy. Plan to start radiation therapy tomorrow if possible. Continue patient on pain medication in the interim. Rationale/Explanation of Treatment: We explained the indications, alternatives, benefits, risks and side effects of external beam radiation therapy to pelvis. We then went on to discuss the acute and late side effects of radiation therapy which include, but are not limited to, skin erythema, skin breakdown, dry desquamation, moist desquamation, infertility issues, bowel obstruction, bowel perforation, radiation proctitis, radiation cystitis, bone fracture, pain, secondary malignancy. We then went on to discuss the procedures and scheduling of radiation therapy. The patient is agreeable to treatment and is willing to sign consent. The patient had multiple questions which were answered to their full satisfaction. Thank you for allowing us to participate in the care of this patient. This chart was completed in part utilizing [employer] Speech Voice Recognition software. Attempts were made to minimize the grammatical errors, random word insertions, pronoun errors and incomplete sentences. Any formal questions or concerns about the content, text or information contained within the body of this dictation should be directly addressed to the provider for clarification. Lauren Quezada MD Department of Radiation Oncology [facility] Present on Admission?: Yes History of Present Illness Reason for Consultation: Left Hip pain due to metastatic prostate cancer Requesting Physician: Delmer Hernandez MD Attending Physician: Lauren Quezada MD History of Present Illness 02/27/2018. CT of chest. IMPRESSION: 1. Interval development of a permeative destructive lesion within the left scapula with associated pathologic fracture. This is consistent with a neoplastic process and favors metastatic disease or myeloma. Additional distal left clavicular lytic lesion. 2. Increase in size and number of numerous pulmonary nodules which are suggestive of metastatic disease. 3. No significant change in aneurysmal dilatation of the thoracic aorta since CT of March 01, 2017. 02/27/2018. CT of abdomen. IMPRESSION: 1. There are numerous subcentimeter pulmonary nodules present at both lung bases. The appearance is highly concerning for pulmonary metastatic disease. 2. 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 3. A small sclerotic lesion is also questioned in the partially imaged right ilium. 4. Atherosclerotic calcification with no evidence of abdominal aortic aneurysm as clinically queried. 5. Cirrhotic liver morphology. 6. Additional findings as above. 03/19/2018. PSA. 198.0. 03/31/2018. PET/CT. IMPRESSION: 1. Initial PET/CT demonstrates multifocal FDG avid destructive osseous metastatic lesions or multiple myeloma. No extraosseous involvement apart from regional soft tissue invasion due to cortical breakthrough at the more FDG avid and aggressive lesions. 2. Multiple bilateral solid pulmonary nodules throughout all 5 lobes. These are below the level of PET resolution but concerning for metastatic disease. 04/01/2018. Bone, left clavicle near its articulation with the shoulder, FNA. Metastatic adenocarcinoma of prostatic origin is seen. 04/09/2018. Skin, right posterior shoulder, shave biopsy. Malignant melanoma. 04/09/2018. Skin, inferior central upper back, shave biopsy. Melanoma in situ, lentigo maligna type. 04/15/2018. Medical oncology follow-up with Dr. Cruz Barrett. Dr. Barrett has recommended initiation with bicalutamide and has referred the patient for palliative external beam radiation therapy to the left shoulder. 04/17/2018 to 05/01/2018. Palliative external beam radiation therapy to the left scapula/shoulder. Treatment completed at [facility] [address]. 05/05/2018. Patient admitted to [facility] for further workup and pain management regarding left hip pain. 05/06/2018. CT hip left without contrast. Impression: 1. Diffuse osteopenia. 2. Potential superimposed lytic defects of the left acetabulum. 3. No evidence for pathologic fracture. 05/06/2018. MRI of lumbar spine. IMPRESSION: 1. Multilevel spondylitic changes 2. Multifocal areas of marrow replacement involving the lower thoracic spine, lumbar spine and sacrum, and iliac bones consistent with extensive multifocal metastasis 3. No evidence of definitive epidural tumor extension 4. Enhancement of the right paraspinal musculature at the L4-L5 level as well as enhancement surrounding the right L4 nerve root. Patient complains of hip pain that is lateral along the left leg. He states that the pain is a 4 out of 10 currently but gets up to a 10 out of 10 and when he is not taking pain medications. Allergies Allergy/AdvReac Type Severity Reaction Status Date / Time No Known Allergies Allergy Unverified 05/05/18 10:55 Home Medications Home Medications Medication Instructions Recorded Confirmed Type Centrum Silver 1 tab PO DAILY 04/01/18 05/05/18 History amlodipine 5 mg PO DAILY 04/01/18 05/05/18 History aspirin [Aspirin Low Dose] 81 mg PO DAILY 04/01/18 05/05/18 History losartan 100 mg PO DAILY 04/01/18 05/05/18 History metoprolol succinate [Toprol XL] 100 mg PO DAILY 04/01/18 05/05/18 History naproxen-diphenhydramine [Aleve PM] 2 tab PO PM PRN 04/01/18 05/05/18 History omega 4-[id number]-fish oil [Fish Oil] 1 tab PO DAILY 04/01/18 05/05/18 History oxycodone 5 mg tablet 5 mg PO Q6H PRN #28 tab 04/15/18 05/05/18 Rx Patient History Medical History Cataract (Acute) BILATERAL EYES / 10 yrs ago Aneurysm artery, pulmonary (Acute) History of tooth extraction (Acute) Hyperlipidemia (Acute) Hypertension (Acute) 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 Daughter No problems noted. Social History Communication Ability: Effective Beliefs That Will Affect Care: None Current Living Situation: Alone current occupational status: retired current occupation: retired worked at [employer] Other Information That Helps Us Care for You: No Feels Safe at Home: Yes Safety Concerns: Feels Safe At This Time Smoking Status: Never smoker Hx Alcohol Use: No Hx Substance Use: No Review of Systems Constitutional: as per Subjective / HPI Eyes: as per Subjective / HPI Ear, Nose, Mouth, Throat: as per Subjective / HPI Respiratory: as per Subjective / HPI Cardiovascular: as per Subjective / HPI Gastrointestinal: as per Subjective / HPI Musculoskeletal: as per Subjective / HPI Integumentary: as per Subjective / HPI Neurologic: as per Subjective / HPI Psychiatric: as per Subjective / HPI Endocrine: as per Subjective / HPI Hematologic / Lymphatic: as per Subjective / HPI Allergy / Immunological: as per Subjective / HPI Physical Exam Vital Signs (Past 24 Hours): Last Vital Signs Temp 36.9 C 05/07/18 08:22 Pulse 72 05/07/18 08:22 Resp 20 05/07/18 08:22 BP 134/71 05/07/18 08:22 Pulse Ox 91 05/07/18 08:22 Constitutional: WD/WN, vitals as above well developed and well nourished Eyes: PERRL, conjunctivae normal, anicteric sclerae ENMT: external ear and nose normal, oropharynx normal Neck: trachea midline, no thyromegaly Respiratory: normal respiratory effort, lungs clear to auscultation Cardiovascular: RRR, no murmur, no edema Gastrointestinal (Abdomen): normal bowel sounds, soft, nontender, no hepatosplenomegaly Musculoskeletal: no cyanosis or clubbing, extremities motor strength 5/5 Skin: no rashes, warm and dry Neurologic: patellar DTR's 2+ bilat, sensation intact and PERRL, EOMI, accommodation nl, no face palsy, no dysarthria Psychiatric: A+Ox3, euthymic affect Results Additional Studies 05/05/18 10:00 ECG 12 lead EKG Stat XR chest 1V portable Stat 05/05/18 10:11 CT head/brain wo con Stat XR femur LT 2V routine Stat XR pelvis 1-2V routine Stat XR shoulder LT min 2V routine Stat 05/06/18 07:00 ECG 12 lead EKG DAILY 05/06/18 11:16 CT hip LT wo con Urgent MR lumbar spine wo/w con Urgent 05/07/18 07:00 ECG 12 lead EKG DAILY Time Spent Attending I spent 25 minutes for this consultation, which included obtaining clinical information, performing a physical exam, recommending a plan of action and answering questions. Greater than 50% of the time spent was direct face to face interaction with the patient.
--- NOTE | 2018-05-07 11:24 | Orthopedic Consultation ---
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 On recent PET scan findings positive in multiple locations of the spine, pelvis and left intertrochanteric region. Appreciate radiology oncology recommendations. Pain localized to the left hip as well as sciatic notch likely secondary to mets, however could also be involving sciatic nerve, in which case would recommend spine eval and/or radiation tx to the spine as well. Would also recommend physical therapy focusing on sciatica symptoms. Recommend MRI with and without contrast of the left hip\femur to better characterized lesion to left intertrochanteric region to determine patient's risk of pathologic hip fracture. Patient's weightbearing status should be protected at this time until MRI performed. Thank you for the consultation. History of Present Illness Reason for Consultation: Left hip pain Attending Physician: Delmer Martinez History of Present Illness The patient is an 87-year-old male with significant past medical history for metastatic prostate cancer currently on chemo and recently finished radiation therapy for metastases to his left scapula.Patient reports recent history of left hip pain which is worsened, physical therapy only made worse. The pain had progressed enough which warranted a visit to the emergency department for further evaluation and treatment. Admits to weakness to the left lower extremity and pain with ambulation. Denies numbness and tingling to his left lower extremity. Denies trauma. Patient had PET scan performed on 03/31/2018 which demonstrated positive findings at the following locations. 1. Right angle of the mandible (max SUV 9.09). 2. C5 posterior elements (max SUV 4.94). 3. L2 vertebral body (max SUV 3.73). 4. L4 posterior elements (max SUV 5.70). 5. Left sacrum/sacroiliac joint (max SUV 5.99). 6. Multifocal new right ilium (max SUV 3.86). 7. Right superior pubic ramus (max SUV 6.20). 8. Intertrochanteric left femur (max SUV 4.57). 9. Multifocal in the left scapula (max SUV 7.44). 10. Left clavicular head and distal left clavicle (max SUV 3.37; max SUV 6.06). 11. Anterior left fifth rib (max SUV 2.83). Allergies Allergy/AdvReac Type Severity Reaction Status Date / Time No Known Allergies Allergy Unverified 05/05/18 10:55 Home Medications Home Medications Medication Instructions Recorded Confirmed Type Centrum Silver 1 tab PO DAILY 04/01/18 05/05/18 History amlodipine 5 mg PO DAILY 04/01/18 05/05/18 History aspirin [Aspirin Low Dose] 81 mg PO DAILY 04/01/18 05/05/18 History losartan 100 mg PO DAILY 04/01/18 05/05/18 History metoprolol succinate [Toprol XL] 100 mg PO DAILY 04/01/18 05/05/18 History naproxen-diphenhydramine [Aleve PM] 2 tab PO PM PRN 04/01/18 05/05/18 History omega 2-lft-kzx-fish oil [Fish Oil] 1 tab PO DAILY 04/01/18 05/05/18 History oxycodone 5 mg tablet 5 mg PO Q6H PRN #28 tab 04/15/18 05/05/18 Rx Patient History Medical History Cataract (Acute) BILATERAL EYES / 10 yrs ago Aneurysm artery, pulmonary (Acute) History of tooth extraction (Acute) Hyperlipidemia (Acute) Hypertension (Acute) 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 Daughter No problems noted. Social History Communication Ability: Effective Beliefs That Will Affect Care: None Current Living Situation: Alone current occupational status: retired current occupation: retired worked at [employer] Other Information That Helps Us Care for You: No Feels Safe at Home: Yes Safety Concerns: Feels Safe At This Time Smoking Status: Never smoker Hx Alcohol Use: No Hx Substance Use: No Review of Systems Constitutional: as per Subjective / HPI Physical Exam Vital Signs (Past 24 Hours): Last Vital Signs Temp 36.9 C 05/07/18 08:22 Pulse 72 05/07/18 08:22 Resp 20 05/07/18 08:22 BP 134/71 05/07/18 08:22 Pulse Ox 91 05/07/18 08:22 Physical Exam: LLE NVSI +EHL/FHL/TA/GS SILT grossly, +2 DP pulse, compartments soft NT, painful ROM of the hip with flexion and piriformis stretch. +TTP over Sciatic notch. Negative straight leg raise. Constitutional: WD/WN, vitals as above Results & Data Diagnostic Findings MR lumbar spine wo/w con CLINICAL HISTORY: Prostate carcinoma. Left leg weakness. Possible bone metastasis. TECHNIQUE: Sagittal and axial T1, T2 and STIR images were obtained. Images were acquired before and after the administration of 8 cc of intravenous Gadavist. COMPARISON STUDY: PET/CT scan dated March 31, 2018 OBSERVATIONS: There are geographic areas of marrow replacement involving the T12, L2, L4, L5, and S1 vertebra. The largest lesion is at the L2 level which measures 29 mm. There is also involvement of the right L3 transverse process, and right L4 pedicle. Lesions involving both iliac bones are partially visualized.. L1-2: No disc protrusions or extrusions. No evidence of spinal canal or neural foraminal compromise. L2-3: There is a mild circumferential disc bulge. There is mild spinal stenosis. There is no significant foraminal narrowing L3-4: There is a mild circumferential disc bulge. There is no significant spinal or foraminal stenosis. L4-5: There is a small annular fissure and small broad-based disc bulge. There is minimal spinal canal narrowing. There is mild facet joint arthropathy. There is minor left-sided foraminal narrowing. L5-S1: No disc protrusions or extrusions. No evidence of spinal canal or neural foraminal compromise. Postcontrast images reveal enhancement of the multiple areas of marrow replacement consistent with neoplasm. There is no evidence for epidural tumor spread. There is enhancement of the right paraspinal musculature at the L4-L5 levels, likely secondary to neoplasm. There is soft tissue enhancement surrounding the right L4 nerve root. IMPRESSION: 1. Multilevel spondylitic changes 2. Multifocal areas of marrow replacement involving the lower thoracic spine, lumbar spine and sacrum, and iliac bones consistent with extensive multifocal metastasis 3. No evidence of definitive epidural tumor extension 4. Enhancement of the right paraspinal musculature at the L4-L5 level as well as enhancement surrounding the right L4 nerve root. CT hip LT wo con CT DOSE: 421.65 mGy.cm HISTORY: Pain left hip pain, bony mets from prostate ca TECHNIQUE: Multiaxial CT images of the left hip were performed and reformatted in the sagittal and coronal plane without the use of contrast. A dose lowering technique was utilized adhering to the principles of ALARA. COMPARISON: PET/CT 03/31/2018 FINDINGS: Findings of generalized osteopenia. Superimposed potential lytic defects of the superior left acetabulum measuring 1.1 and 1.7 cm. A potential additional medial left acetabular lytic defect measuring 2.2 cm. No evidence for fracture. No evidence for acetabular protrusion. IMPRESSION: 1. Diffuse osteopenia. 2. Potential superimposed lytic defects of the left acetabulum. 3. No evidence for pathologic fracture. [place], [place] [phone] XRay Report Patient: MAIRSOL HARRINGTON Date: 05/05/18 MR#: [id number]: [id number] [facility] Acct ID:[id number]: Date: 1930[facility] Zip: [place] [address] Age: 87Location: ED Sex: M Room/Bed: Att Phy: Diagnosis: DOCTOR REFERRED Ada Phy: Ramu Duron D.O.Service Date: 05/05/18 [facility] Phy: Interpreting Phy: Fidel Crow MD Admit Phy: Ordering Phy: Blair Silverio, cc: ~ LEFT SHOULDER 3 VIEWS HISTORY: l shoulder pain COMPARISON: None. FINDINGS: There is no fracture or dislocation. Soft tissues are unremarkable. No radiopaque foreign bodies. Soft tissues are unremarkable. Mild degenerative changes. Diffuse osteopenia. IMPRESSION: No fracture or dislocation within the left shoulder. SINGLE VIEW PELVIS; 3 VIEWS LEFT FEMUR CLINICAL HISTORY: Weakness. Left leg pain. FINDINGS: 3 AP views of the pelvis with AP, frog-leg, and lateral views of the left femur are obtained. Correlation is made with PET/CT dated 03/31/2018. The skeletal structures are osteopenic. No fracture is identified involving the hips or bony pelvis. There is no evidence of left femoral fracture. Mild to moderate arthritic change and joint space narrowing is seen in the hips. The sacroiliac joints are normal. A subtle osteolytic lesion is seen within the right pubic ring. Additional osseous lesions seen on the recent PET CT were not clearly identified by x-ray. Lumbosacral spondylosis is partially imaged. No bowel obstruction is identified. The overlying soft tissues are normal in appearance. There is atherosclerotic calcification of the left femoral artery. IMPRESSION: 1. No acute bony abnormality is identified involving the hips or bony pelvis. 2. There is no radiographic evidence of left femoral fracture. 3. Osteopenia and mild degenerative change as above. 4. A subtle osteolytic lesion is again seen within the right pubic ring. Additional osseous lesions seen on the recent PET CT were not apparent by x-ray. HEAD CT NONCONTRAST CT DOSE: 614.27 mGy.cm HISTORY: Weakness. TECHNIQUE: Multiaxial CT images of the head were performed without the use of intravenous contrast. Automated exposure control was utilized for this study. A dose lowering technique was utilized adhering to the principles of ALARA. Comparison: None. Findings: Small retention cyst within the left maxillary sinus and left sphenoid sinus. The mastoid air cells are clear. The calvarium and skull base are intact. There is no mass, hematoma, midline shift, acute infarct. White matter hypodensity is nonspecific but suggestive of microvascular ischemic change. The ventricles and sulci demonstrate mild age-related involutional changes. Impression: No acute intracranial abnormality. Atrophy and microvascular ischemic changes. SINGLE VIEW PELVIS; 3 VIEWS LEFT FEMUR CLINICAL HISTORY: Weakness. Left leg pain. FINDINGS: 3 AP views of the pelvis with AP, frog-leg, and lateral views of the left femur are obtained. Correlation is made with PET/CT dated 03/31/2018. The skeletal structures are osteopenic. No fracture is identified involving the hips or bony pelvis. There is no evidence of left femoral fracture. Mild to moderate arthritic change and joint space narrowing is seen in the hips. The sacroiliac joints are normal. A subtle osteolytic lesion is seen within the right pubic ring. Additional osseous lesions seen on the recent PET CT were not clearly identified by x-ray. Lumbosacral spondylosis is partially imaged. No bowel obstruction is identified. The overlying soft tissues are normal in appearance. There is atherosclerotic calcification of the left femoral artery.
--- NOTE | 2018-05-07 13:36 | Medical Student Progress Note ---
Date of Service May 07, 2018 Assessment & Plan (1) Prostate cancer metastatic to bone: 87yo M with prostate cancer metastatic to bone (current chemo and previous radiation therapy for pain), HTN, and HLD presented at ED with with persistent LLE pain for several wks (and weakness?). Radiation oncology would like to start radiation therapy to left hip. Orthopedics would like to order a MRI of the left hip/femur. will continue dexamethasone for a short while longer-- as seems to have de creased pain. long acting opioid medication is an option for controlling the bone pain due to metastatic prostate cancer. osteoclast inhibitor is also an option to consider (bisphosphonate, denosumab, [place]-233) Left hip pain leading to under use/deconditioning of LLE, which may account for the weakness the pt is experiencing (relative to his normal strength); pt assessed to have good gross LE strength though. Hip CT showed bone met in left acetabulum, but not pathologic fx Lumbar spine MRI shows letha mets (2) Abnormal EKG: EKG showed some non-specific ST and T wave ab no elevated troponins (<0.015, 0.023, 0.023) clinically pt is not experiencing any CP, palpitations, or SOB Subjective 87yo M with prostate cancer metastatic to bone (current chemo and previous radiation therapy for pain), HTN, and HLD presented at ED with with persistent LLE pain for several wks (and weakness?). pt reports 3/10 left hip pain, which is an improvement of 9/10 reported yesterday. pain is of left lateral buttock and hip; localized; no radiation; no numbness or tingling pain is aggravated if pressure applied to the area by certain seating positions. no BM since Saturday, 05/03 seen this AM by orthopedics and radiation oncology. No f/c/n/v GENERAL, CONSTITUTIONAL- No Fever, Chills HEART, CARDIOVASCULAR- No Chest pain or pressure, Arrhythmia or palpitations, Shortness of breath, Peripheral edema RESPIRATORY- No Cough, Shortness of breath with activity, no Wheezing GASTROINTESTINAL- no abd pain, no Heartburn, or Bloody stool SKIN & INTEGUMENTARY- No Rashes, Sores, Blisters, Growths MUSCULOSKELETAL- L UE pain; LLE pain and weakness Physical Exam 2 Vital Signs (Past 24 Hours): Last Vital Signs Temp 36.7 C 05/07/18 11:38 Pulse 73 05/07/18 11:38 Resp 18 05/07/18 11:38 BP 96/56 L 05/07/18 11:38 Pulse Ox 93 05/07/18 11:38 Physical Exam: GENERAL: cooperative, no acute distress HEENT: Mouth: Moist mucous membranes, no lesions. Nervous System: Mental status: Alert and oriented x 3, good concentration. Motor: Strength 5/5 in UE; 5/5 in LE; sensation to light touch at distal e xtremities intact Chest/Lung: Clear to auscultation bilaterally No rales, rhonchi, wheezing, or rubs. Heart: Regular rate and rhythm. Normal S1, S2 Grade 2 murmur heard best at right upper sternal border. Abdomen: NTND, BS+ Extremities: no LE edema
[2018-05-07] MEDS: OXYCODONE HCL IR 5 MG TAB (IMMEDIATE RELEASE) PO PRN (14:31)
[2018-05-07] MEDS ORDERED: GADOBUTROL 65ML VIAL IV PRN (19:54)
[2018-05-07] MEDS: BICALUTAMIDE 50 MG TAB PO SCH (20:31)
--- NOTE | 2018-05-07 21:14 | Magnetic Resonance Report ---
MR femur LT wo/w con CLINICAL HISTORY: 87 years-old Male presenting with mets to left IT region. TECHNIQUE: Multisequence, multiplanar MR imaging of the left femur was performed before and after the administration of intravenous contrast. IV contrast: Gadavist. COMPARISON: CT of the left hip performed the previous day. FINDINGS: Localizer images: Unremarkable. T1 hypointense lesion along the posterior aspect of the intertrochanteric portion of the left femur. This may either originate from the bone and violate the overlying cortex with extraosseous soft tissu e or represent an extraosseous soft tissue site of disease with adjacent osseous destruction. Conside ring the intraosseous and extraosseous portions of the lesion together, this measures 4.6 x 3.8 x 3.8 cm. The lesion involves over half of the medullary cavity (series 10 image 16). This demonstrates en hancement on postcontrast imaging. Hyperintensity of the left abductor muscle group. Additional osseous lesions with significant extraosseous extension evident in the superior right pubi c ramus and potentially in the left sacrum. The urinary bladder is distended with excreted contrast. IMPRESSION: 1. Intraosseous and extraosseous mass along the posterior intertrochanteric left femur. This is favo red to represent an osseous metastasis with extraosseous extension. Orthopedic consultation could be considered given the extent of involvement over 50% of the medullary space. 2. Additional osseous lesions partially visualized. A nuclear medicine bone scan may better demonstr ate the extent of osseous metastasis. Electronically signed by: Cedrick Galan M.D. 05/07/2018 9:12 PM
--- NOTE | 2018-05-07 21:36 | Hospitalist Progress Note ---
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 ortho has ordered MRI left hip. if there is considerable tumor burden in the actual hip would he need a prophylactic procedure to prevent pathological fx? defer to ortho (3) Left leg pain: multifactorial - femur mets, SI joint mets on left, l-spine mets, etc pain control - see plan above (4) Acute kidney injury: resolved stop IVF bmp am (5) Abnormal EKG: echo w/o wall motion abnormalities no ischemic symptoms since admission (6) HTN (hypertension): continue home meds (7) DVT prophylaxis: heparin 5000 TID PT, OT evals Subjective patient states pain in left leg and left buttock is similar or slightly better than yesterday no new symptoms Constitutional: no fever Respiratory: no cough and no dyspnea Cardiovascular: no chest pain Gastrointestinal: no abdominal pain Physical Exam Vital Signs (Past 24 Hours): Last Vital Signs Temp 36.7 C 05/07/18 11:38 Pulse 66 05/07/18 15:57 Resp 18 05/07/18 11:38 BP 96/56 L 05/07/18 11:38 Pulse Ox 93 05/07/18 11:38 Constitutional: average body habitus; no acute distress, not ill appearing and no altered mental status ENMT: external ear and nose normal, oropharynx normal Respiratory: normal respiratory effort, lungs clear to auscultation Cardiovascular: RRR, no murmur, no edema Heart Sounds: normal S1 and normal S2 Vessels: posterior tibial pulses present and dorsalis pedis pulses pres ent; no JVD Gastrointestinal (Abdomen): normal bowel sounds, soft, nontender, no hepatosplenomegaly Psychiatric: A+Ox3, euthymic affect Results & Data Laboratory Results Laboratory Results - last 24 hr 05/07/18 06:09 Sodium 136 Potassium 4.4 Chloride 103 Carbon Dioxide 27 Anion Gap 6.0 BUN 23 H Creatinine 1.11 Est Cr Clr Drug Dosing 50.2 Est GFR ( Amer) 69.8 Est GFR (Non-Af Amer) 60.2 BUN/Creatinine Ratio 20.3 H Glucose 138 H Calcium 8.7 (1) HTN (hypertension) Hypertension type: essential hypertension Qualified Code(s): I10 - Essential (primary) hypertension
[2018-05-08] MEDS: DEXAMETHASONE SOD PHOSPHATE 4 MG in SYRINGE 0 ML IV SCH ×4 (00:11→21:33)
[2018-05-08] MEDS: HEPARIN SOD 5,000 UNIT/0.5 ML VIAL SQ SCH ×3 (06:10→21:35)
[2018-05-08 08:01] LABS: BUN Creatinine Ratio 25.4 (10-20); Calcium 8.8 mg/dl (8.5-10.1); Creatinine Clr Calc Pharmacy 45.3 ml/min; Est GFR (African American) 61.7; Est GFR (Non-African American) 53.2; Potassium 4.2 mmol/L (3.5-5.1)
[2018-05-08] MEDS: AMLODIPINE BESYLATE 5 MG TAB PO SCH (08:12)
[2018-05-08] MEDS: METOPROLOL SUCC 50MG EXT REL TAB PO SCH (08:14)
[2018-05-08] MEDS: LOSARTAN POTASSIUM 50 MG TAB PO SCH (08:14)
[2018-05-08] MEDS: CEROVITE ADV FORMULA TAB PO SCH (08:14)
[2018-05-08] MEDS: ACETAMINOPHEN 500 MG TAB PO SCH ×3 (08:15→21:37)
[2018-05-08] MEDS: ASPIRIN 81 MG ECTAB PO SCH (08:15)
[2018-05-08] MEDS: OMEGA-3 (PURIFIED FISH OIL) 1 GM CAP PO SCH (08:15)
[2018-05-08] MEDS: BICALUTAMIDE 50 MG TAB PO SCH (08:15)
[2018-05-08] MEDS: LIDOCAINE 5% 1 PATCH TD SCH (08:16)
[2018-05-08] MEDS: SENNA 8.6 MG TAB PO SCH (08:23)
[2018-05-08] MEDS: POLYETHYLENE (MIRALAX) 17 GM PACK PO SCH (08:23)
--- NOTE | 2018-05-08 13:17 | Radiation Oncology Progress Nt ---
Date of Service May 08, 2018 Assessment & Plan (1) Prostate cancer metastatic to bone: I have spoken with Dr. Hernandez today and reviewed imaging studies and records from Orthopedic Surgery. I am in support of patient having ORIF with stabilization of left femur by orthopedic surgery if that is recommended. If orthopedics advises against surgery, we will resume treatment planning based on previous CT simulation. I would recommend that we still consider post-operative radiation therapy to left femur and left pelvis depending on pain assessment if the patient undergoes ORIF of the left femur. If patient undergoes surgery, we will schedule to have the patient come back down for resimulation on Saturday. We will confirm plan with orthopedic surgery/hospital team and plan appropriately. Until final plan is confirmed, radiation therapy planning will be on hold. We will continue to follow the patient. Please call me with any further questions or concerns. Lauren Quezada MD Radiation Oncology
--- NOTE | 2018-05-08 15:25 | Progress Note ---
DATE: 05/08/2018 The patient is an 87-year-old white male with a history of metastatic prostate cancer. Dr. Day had been consulted for sites that had been noted to have metastatic disease. Initially hip films were showing a left femur metastasis to the bone and initially he was going to be treated conservatively with radiation therapy and limited weightbearing if needed; however, Dr. Day recently ordered an MRI. Today, he discussed with me the findings of the MRI, noting that with the degree of encroachment into the medullary canal by the tumor itself, the patient was at a higher level of possibly having a pathologic fracture. It was discussed that he would likely need a trochanteric nailing as prophylaxis against any fracture that may occur. This was discussed with Dr. Martinez who in turn discussed it with radiation oncology. I also stopped and saw the patient who was visiting with his son. The case was discussed and the patient is wanting to go ahead with surgery for the prophylactic nailing of his left femur as soon as possible. Dr. Le is here tomorrow doing surgery and the patient is in agreement to have the left TFN done tomorrow by Dr. Le. This was all discussed with Dr. Martinez. Radiation oncology will hold off on any further treatments and re-simulate him early next week after surgery has been performed. At this point in time, we will make the patient n.p.o. after midnight and he has been added on to the operating room schedule for prophylactic intramedullary trochanteric femoral nailing for Dr. Le. [facility]
--- NOTE | 2018-05-08 16:30 | Anesthesiology Consultation ---
Date of Service May 08, 2018 Assessment & Plan (1) Encounter for pre-operative examination: Chart Review Chart Review: Acceptable Risk for Surgery History Surgery Operation Date: 05/09/18 12:40 Proposed Procedures p Left Troch Nail - Harlan Le DO Height/Weight Height: 5 ft 10 in Weight: 83.1 kg Allergies Allergy/AdvReac Type Severity Reaction Status Date / Time No Known Allergies Allergy Unverified 05/05/18 10:55 Medications Home Medications Medication Instructions Recorded Confirmed Last Taken Centrum Silver 1 tab PO DAILY 04/01/18 05/05/18 05/05/18 amlodipine 5 mg PO DAILY 04/01/18 05/05/18 05/05/18 aspirin [Aspirin Low Dose] 81 mg PO DAILY 04/01/18 05/05/18 05/05/18 losartan 100 mg PO DAILY 04/01/18 05/05/18 05/05/18 metoprolol succinate [Toprol XL] 100 mg PO DAILY 04/01/18 05/05/18 05/05/18 naproxen-diphenhydramine [Aleve PM] 2 tab PO PM PRN 04/01/18 05/05/18 Unknown omega 2-jms-fyk-fish oil [Fish Oil] 1 tab PO DAILY 04/01/18 05/05/18 05/05/18 oxycodone 5 mg tablet 5 mg PO Q6H PRN #28 tab 04/15/18 05/05/18 05/05/18 08:00 Active Medications Generic Name Dose Route Start Last Admin Trade Name Freq PRN Reason Stop Dose Admin Acetaminophen 1,000 mg 05/06/18 14:00 05/08/18 14:32 Tylenol PO 06/05/18 13:59 1,000 mg TID EL Administration Amlodipine Besylate 5 mg 05/06/18 09:00 05/08/18 08:12 Norvasc PO 06/05/18 08:59 5 mg DAILY EL Administration Aspirin 81 mg 05/06/18 09:00 05/08/18 08:15 Ecotrin Ectab PO 06/05/18 08:59 81 mg DAILY EL Administration Bicalutamide 50 mg 05/07/18 18:15 05/08/18 08:15 Casodex PO 06/06/18 18:14 50 mg QAM EL Administration Fish Oil 1 gm 05/06/18 09:00 05/08/18 08:15 Keymar-3 (Purified Fish Oil) PO 06/05/18 08:59 1 gm DAILY EL Administration Gadobutrol 8 ml 05/06/18 12:52 05/06/18 12:52 Gadavist 65ml IV 05/10/18 12:51 8 ml ONCE PRN Administration Interaction Checking Gadobutrol 8 ml 05/07/18 19:54 05/07/18 19:54 Gadavist 65ml IV 05/11/18 19:53 8 ml ONCE PRN Administration Interaction Checking Heparin Sodium (Porcine) 5,000 units 05/05/18 16:01 05/08/18 14:31 Heparin Sodium (Porcine) SQ 06/04/18 16:00 5,000 units Q8 EL Administration Dexamethasone Sodium Phosphate 1 mls @ 1 mls/min 05/06/18 12:00 05/08/18 11:28 4 mg/ Syringe IV 06/05/18 11:59 1 mls/min Q6H EL Administration Lidocaine 1 patch 05/05/18 13:23 05/08/18 08:16 Lidoderm 5% TD 06/04/18 13:22 1 patch QAM EL Administration Losartan Potassium 100 mg 05/06/18 09:00 05/08/18 08:14 Cozaar PO 06/05/18 08:59 100 mg DAILY EL Administration Metoprolol Succinate 100 mg 05/06/18 09:00 05/08/18 08:14 Toprol Xl PO 06/05/18 08:59 100 mg DAILY EL Administration Miscellaneous 1 ea 05/05/18 21:00 05/07/18 20:32 Remove Lidoderm Patch N/A 06/04/18 20:59 1 ea DAILY@2100 EL Administration Multivitamins/Minerals 1 tab 05/06/18 09:00 05/08/18 08:14 Multivitamin W/ Minerals Tab PO 06/05/18 08:59 1 tab DAILY EL Administration Oxycodone HCl 10 mg 05/05/18 16:01 05/07/18 14:31 Roxicodone Immediate Rel PO 05/19/18 16:00 10 mg Q6H PRN Administration pain Polyethylene Glycol 17 gm 05/08/18 09:00 05/08/18 08:23 Miralax Powder Packet PO 06/07/18 08:59 17 gm DAILY EL Administration Sennosides 17.2 mg 05/08/18 09:00 05/08/18 08:23 Senokot PO 06/07/18 08:59 17.2 mg QAM EL Administration Past Medical History Medical History Cataract (Acute) BILATERAL EYES / 10 yrs ago Aneurysm artery, pulmonary (Acute) History of tooth extraction (Acute) Hyperlipidemia (Acute) Hypertension (Acute) 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 Daughter No problems noted. Past Surgical History Surgical History H/O basal cell carcinoma excision (Acute) History of cataract surgery (Acute) BILATERAL EYES Social History Smoking Status: Never smoker Hx Alcohol Use: No Hx Substance Use: No Physical Exam Vital Signs Last Vital Signs Temp 36.5 C 05/08/18 15:24 Pulse 60 05/08/18 15:24 Resp 18 05/08/18 15:24 BP 125/48 L 05/08/18 15:24 Pulse Ox 94 05/08/18 15:24 Testing Electrocardiogram Date: 05/06/18 Findings: + NSR @ (99) and + NSST changes Echocardiogram Date: 05/06/18 EF: 60% LV Function: normal Valvular Disease: + (mild valve area > 2 cm2) Laboratory Results 05/05/18 10:18 05/08/18 07:10 Blood Type O Positive 05/08/18 14:45 Antibody Screen NEGATIVE 05/08/18 14:45 PT 10.9 Seconds (9.0-12.0) 05/05/18 10:18 INR 1.1 (0.9-1.1) 05/05/18 10:18 Urine Color Dark Yellow 05/06/18 02:40 Urine Appearance Clear (Clear) 05/06/18 02:40 Urine pH 5.0 (4.5-7.5) 05/06/18 02:40 Ur Specific Leon 1.021 (1.000-1.030) 05/06/18 02:40 Urine Protein Negative (Negative) 05/06/18 02:40 Urine Glucose (UA) Negative (Negative) 05/06/18 02:40 Urine Ketones 1+ (Negative) H 05/06/18 02:40 Urine Nitrite Negative (Negative) 05/06/18 02:40 Ur Leukocyte Esterase Negative (Negative) 05/06/18 02:40 Urine WBC (Auto) 1-5 /hpf (0-5) 05/06/18 02:40 Urine RBC (Auto) 10-30 /hpf (0-4) H 05/06/18 02:40 U Hyaline Cast (Auto) 1-5 /lpf (0-5) 05/06/18 02:40 U Epithel Cells (Auto) 0-5 /lpf (0-5) 05/06/18 02:40 Urine Bacteria (Auto) Negative (Negative) 05/06/18 02:40
--- NOTE | 2018-05-08 20:40 | Hospitalist Progress Note ---
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 taper steroids to q8h dosing today. consider long-acting narcotic if needed. appreciate ortho evaluation - to have prophylactic stabilization procedure of left hip tomorrow. appreciate rad onc evaluation - to begin xrt to pelvis and lumbar spine probably early this coming week. cont casodex daily. (2) Prostate cancer metastatic to multiple sites: PET scan in March and CT left hip with bone mets in and around hip. MRI left hip shows considerable tumor burden in the intertrochanteric area of the hip joint; ortho planning prophylactic dariusz procedure to prevent pathological fx. this is scheduled for tomorrow. (3) Left leg pain: multifactorial - femur mets, SI joint mets on left, l-spine mets, etc pain control - see plan above surgery planned for tomorrow - see above radiation next week (4) Acute kidney injury: resolved bmp am for stability (5) Abnormal EKG: echo w/o wall motion abnormalities no ischemic symptoms since admission troponin negative since admission continue troponin no history of CAD I believe from cardiopulmonary perspective he is optimized for surgery tomorrow His biggest risk post-op is that of VTE given his advanced cancer (6) HTN (hypertension): continue home meds but HOLD ARB perioperatively to avoid CAMPOS resume ARB 24 hours post-op if creatinine is stable (7) Constipation: senna + miralax (8) Chronic kidney disease, stage 3a: creatinine stable/at baseline BMP in am (9) Dysphagia: patient reports frequent throat clearing and cough during meals. speech therapy consult. he also mentions some reflux type symptoms -- add zantac BID. (10) DVT prophylaxis: heparin 5000 TID PT, OT pain control overall improved Subjective pt resting comfortably during the visit son at bedside reports pain at rest is decently controlled when he ambulates the left leg feels better than a few days ago denies any new complaints Constitutional: no fever Respiratory: no cough and no dyspnea Cardiovascular: no chest pain, no orthopnea and no paroxysmal nocturnal dyspnea Gastrointestinal: + constipation; no abdominal pain Physical Exam Vital Signs (Past 24 Hours): Last Vital Signs Temp 36.8 C 05/08/18 19:39 Pulse 61 05/08/18 19:39 Resp 18 05/08/18 19:39 BP 141/70 H 05/08/18 19:39 Pulse Ox 90 05/08/18 19:39 Constitutional: well developed, well nourished and average body habitus; no acute distress, not ill appearing and no altered mental status ENMT: external ear and nose normal, oropharynx normal Respiratory: normal respiratory effort, lungs clear to auscultation Cardiovascular: RRR, no murmur, no edema Rate/Rhythm: regular rate and regular rhythm Heart Sounds: normal S1, normal S2 and + murmur (1 out of 6 systolic murmur heard best at the right upper sternal border) Vessels: posterior tibial pulses present and dorsalis pedis pulses present; no JVD Gastrointestinal (Abdomen): normal bowel sounds, soft, nontender, no hepatosplenomegaly Psychiatric: A+Ox3, euthymic affect Results & Data Laboratory Results Laboratory Results - last 24 hr 05/08/18 05/08/18 07:10 14:45 Sodium 137 Potassium 4.2 Chloride 103 Carbon Dioxide 27 Anion Gap 7.0 BUN 31 H Creatinine 1.23 Est Cr Clr Drug Dosing 45.3 Est GFR ( Amer) 61.7 Est GFR (Non-Af Amer) 53.2 BUN/Creatinine Ratio 25.4 H Glucose 133 H Calcium 8.8 Blood Type O Positive Antibody Screen NEGATIVE (1) HTN (hypertension) Hypertension type: essential hypertension Qualified Code(s): I10 - Essential (primary) hypertension (2) Constipation Constipation type: other constipation type Qualified Code(s): K59.09 - Other constipation (3) Dysphagia Dysphagia type: unspecified Qualified Code(s): R13.10 - Dysphagia, unspecified
[2018-05-09] MEDS: DEXAMETHASONE SOD PHOSPHATE 4 MG in SYRINGE 0 ML IV SCH ×3 (04:27→19:52)
[2018-05-09] MEDS: HEPARIN SOD 5,000 UNIT/0.5 ML VIAL SQ SCH ×3 (05:34→20:29)
[2018-05-09] MEDS ORDERED: BUPIVACAINE 0.5 % 5 MG/1 ML PF 10ML VIAL ONE (07:08)
[2018-05-09] MEDS: METOPROLOL SUCC 50MG EXT REL TAB PO SCH (08:36)
[2018-05-09] MEDS: OMEGA-3 (PURIFIED FISH OIL) 1 GM CAP PO SCH (08:37)
[2018-05-09] MEDS: BICALUTAMIDE 50 MG TAB PO SCH (08:37)
[2018-05-09] MEDS: CEROVITE ADV FORMULA TAB PO SCH (08:37)
[2018-05-09] MEDS: POLYETHYLENE (MIRALAX) 17 GM PACK PO SCH (08:38)
[2018-05-09] MEDS: ASPIRIN 81 MG ECTAB PO SCH (08:38)
[2018-05-09] MEDS: LIDOCAINE 5% 1 PATCH TD SCH (08:39)
[2018-05-09] MEDS: SENNA 8.6 MG TAB PO SCH (08:39)
[2018-05-09] MEDS: OXYCODONE HCL IR 5 MG TAB (IMMEDIATE RELEASE) PO PRN ×2 (08:42→20:28)
[2018-05-09] MEDS: ACETAMINOPHEN 500 MG TAB PO SCH ×3 (08:43→20:28)
[2018-05-09 09:33] LABS: BUN Creatinine Ratio 27.6 (10-20); Calcium 8.8 mg/dl (8.5-10.1); Creatinine Clr Calc Pharmacy 43.6 ml/min; Est GFR (African American) 58.8; Est GFR (Non-African American) 50.7; Potassium 4.3 mmol/L (3.5-5.1)
--- NOTE | 2018-05-09 11:15 | History & Physical Bridge Note ---
Date of Service May 09, 2018 History & Physical Bridge Note I have examined the patient, reviewed the History & Physical and in the interval since the performance of the History & Physical I have noted the following changes of clinical significance: no changes noted
[2018-05-09] MEDS ORDERED: BISACODYL 10 MG SUPP PR STA (18:55)
--- NOTE | 2018-05-09 18:56 | Hospitalist Progress Note ---
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 tapering steroids t-currently at Decadron 4mg IV q8h consider long-acting narcotic if needed. appreciate ortho evaluation - to have prophylactic stabilization procedure of left hip tomorrow-rescheduled. appreciate rad onc evaluation - to begin xrt to pelvis and lumbar spine probably early this coming week. cont casodex daily. (2) Prostate cancer metastatic to multiple sites: PET scan in March and CT left hip with bone mets in and around hip. MRI left hip shows considerable tumor burden in the intertrochanteric area of the hip joint; ortho planning prophylactic dariusz procedure to prevent pathological fx. this is scheduled for tomorrow. (3) Left leg pain: multifactorial - femur mets, SI joint mets on left, l-spine mets, etc pain control - see plan above surgery planned for tomorrow - see above radiation next week (4) Acute kidney injury: resolved bmp am for stability (5) Abnormal EKG: echo w/o wall motion abnormalities no ischemic symptoms since admission troponin negative since admission continue troponin no history of CAD I believe from cardiopulmonary perspective he is optimized for surgery tomorrow His biggest risk post-op is that of VTE given his advanced cancer (6) HTN (hypertension): continue home meds but HOLD ARB perioperatively to avoid CAMPOS resume ARB 24 hours post-op if creatinine is stable -will also hold amlodipine today for low normal BPs (7) Constipation: No BM in 5 days senna + miralax -add Bisacodyl ID x 1 today (8) Chronic kidney disease, stage 3a: creatinine stable/at baseline BMP in am (9) Dysphagia: patient reports frequent throat clearing and cough during meals. speech therapy consult appreciated he also mentions some reflux type symptoms -- continue zantac BID. (10) DVT prophylaxis: heparin 5000 TID PT, OT Dispo-remain hospitalized Subjective Pt never had his surgery today on the hip as the NURSE LEADER did a swallowing eval at the bedside and he ate crackers. Rescheduled for tomorrow. Reports pain is controlled now. No nausea, no headache or lightheadedness, no CP or SOB. No abd pain. He is constipated and hasn't moved his bowels in 4-5 days. Tele with sinus kim, rates 40-50s Review of Systems All systems reviewed & are unremarkable except as noted in HPI & below Physical Exam Vital Signs (Past 24 Hours): Last Vital Signs Temp 36.5 C 05/09/18 15:39 Pulse 54 L 05/09/18 16:00 Resp 18 05/09/18 15:39 BP 136/52 L 05/09/18 15:39 Pulse Ox 90 05/09/18 15:39 Constitutional: WD/WN, vitals as above Eyes: PERRL, conjunctivae normal, anicteric sclerae ENMT: external ear and nose normal, oropharynx normal Neck: trachea midline, no thyromegaly Respiratory: normal respiratory effort, lungs clear to auscultation Cardiovascular: Rate/Rhythm: regular rhythm and + bradycardic Heart Sounds: no murmur Extremities: no edema Gastrointestinal (Abdomen): normal bowel sounds, soft, nontender, no hepatosplenomegaly Musculoskeletal: Extremities: extremities normal to inspection (and no TTP over left lateral hip); no cyanosis and no clubbing Skin: no rashes, warm and dry Neurologic: moves all extremities and awake; no focal motor deficits Psychiatric: A+Ox3, euthymic affect Results & Data Laboratory Results no labs today (1) Dysphagia Dysphagia type: unspecified Qualified Code(s): R13.10 - Dysphagia, unspecified (2) HTN (hypertension) Hypertension type: essential hypertension Qualified Code(s): I10 - Essential (primary) hypertension (3) Constipation Constipation type: other constipation type Qualified Code(s): K59.09 - Other constipation
[2018-05-10] MEDS: DEXAMETHASONE SOD PHOSPHATE 4 MG in SYRINGE 0 ML IV SCH ×3 (04:30→20:16)
[2018-05-10] MEDS: HEPARIN SOD 5,000 UNIT/0.5 ML VIAL SQ SCH (06:15)
[2018-05-10 07:21] LABS: Eosinophils # (auto) 0.01 K/uL (0-0.5); Eosinophils % (auto) 0.1 %; Hematocrit (blood only) 35.9 % (42-52); Hemoglobin 11.7 g/dL (14.0-18.0); Immature Granulocytes # (auto) 0.06 K/uL (0.00-0.02); Immature Granulocytes % (auto) 0.4 %; Lymphocytes # (auto) 0.28 K/uL (1.2-3.4); Mean Corpuscular Volume 84.1 fL (80-100); Mean Platelet Volume 10.2 fL (7.4-10.4); Monocytes # (auto) 1.01 K/uL (0.11-0.59); Neutrophils # (auto) 12.97 K/uL (1.4-6.5); Neutrophils % (auto) 90.5 %; Platelet Count 253 K/uL (130-400); RDW Coefficient of Variation 14.5 % (11.5-14.5); RDW Standard Deviation 44.3 fL (36.4-46.3); Red Blood Count 4.27 M/uL (4.7-6.1); White Blood Count 14.33 K/uL (4.8-10.8)
[2018-05-10 07:22] LABS: Mean Corpuscular Hgb Conc 32.6 g/dL (32-36)
[2018-05-10] MEDS: POLYETHYLENE (MIRALAX) 17 GM PACK PO SCH (08:09)
[2018-05-10] MEDS: OMEGA-3 (PURIFIED FISH OIL) 1 GM CAP PO SCH (08:09)
[2018-05-10] MEDS: ASPIRIN 81 MG ECTAB PO SCH (08:09)
[2018-05-10] MEDS: CEROVITE ADV FORMULA TAB PO SCH (08:09)
[2018-05-10] MEDS: ACETAMINOPHEN 500 MG TAB PO SCH ×3 (08:10→20:14)
[2018-05-10] MEDS: METOPROLOL SUCC 50MG EXT REL TAB PO SCH (08:10)
[2018-05-10] MEDS: SENNA 8.6 MG TAB PO SCH (08:10)
[2018-05-10] MEDS: LIDOCAINE 5% 1 PATCH TD SCH (08:12)
[2018-05-10] MEDS: BICALUTAMIDE 50 MG TAB PO SCH (08:12)
[2018-05-10] MEDS ORDERED: fentaNYL citrate 100 MCG/2 ML VIAL IV PRN (09:40)
[2018-05-10] MEDS ORDERED: HYDROmorphone INJ 1 MG/ML SYRINGE IV PRN (09:40)
[2018-05-10] MEDS ORDERED: ATROPINE SULFATE 0.1 MG/ML 10ML SYR IV PRN (09:40)
[2018-05-10] MEDS ORDERED: PHENYLEPHRINE 100MCG/ML 5ML SYR IV PRN (09:40)
[2018-05-10] MEDS ORDERED: ONDANSETRON INJ 2 MG/ML 2 ML VIAL IV PRN (09:40)
[2018-05-10] MEDS ORDERED: ePHEDrine sulfate 50 MG/ML AMP IV PRN (09:40)
[2018-05-10] MEDS ORDERED: ONDANSETRON INJ 2 MG/ML 2 ML VIAL ONE (09:45)
[2018-05-10] MEDS ORDERED: LIDOCAINE HCL 2% 2 ML VIAL/AMP(20MG/ML) INFIL ONE (09:45)
[2018-05-10] MEDS ORDERED: fentaNYL citrate 100 MCG/2 ML VIAL ONE ×2 (09:45→11:08)
[2018-05-10] MEDS ORDERED: NEOSTIGMINE METHYLSULFATE 5 MG/5 ML SYR ONE (09:45)
[2018-05-10] MEDS ORDERED: PROPOFOL IV EMULSION 10 MG/ML 20 ML VIAL IV ONE (09:45)
[2018-05-10] MEDS ORDERED: DEXAMETHASONE SOD INJ 4 MG/ML VIAL ONE (09:45)
[2018-05-10] MEDS ORDERED: GLYCOPYRROLATE 0.2 MG/ML VIAL ONE ×2 (09:45→10:41)
[2018-05-10] MEDS ORDERED: CEFAZOLIN 2,000 MG/15 ML IV PUSH IV ONE (09:56)
--- NOTE | 2018-05-10 09:59 | History & Physical Bridge Note ---
Date of Service May 10, 2018 History & Physical Bridge Note I have examined the patient, reviewed the History & Physical and in the interval since the performance of the History & Physical I have noted the following changes of clinical significance: no changes noted
[2018-05-10] MEDS ORDERED: BUPIVACAINE/EPINEPHRINE 0.5% MPF 1:200,000 30 ML VIAL ONE (10:02)
--- NOTE | 2018-05-10 10:03 | Orthopedic Progress Note ---
Date of Service May 10, 2018 Assessment & Plan (1) Prostate cancer metastatic to bone: Patient is an 87-year-old male with metastatic prostate cancer involving multiple locations including left intertrochanteric region. Required MRI to better classify the tumor. Patient is at least an 8 on scoring on mirel's criteria. Therefore we will proceed with prophylactic fixation including long left hip cephalo-medullary nail. The patient was medically stabilized to proceed with surgical intervention on 05/10/2018. The risk benefits and complications were explained to the patient in detail which include however not limited to infections, acute blood loss, blood clots, injury to surrounding nerves, bone, vessels, soft tissue, arthrofibrosis, chronic pain, failure of fixation, failure of implant, cardiac and pulmonary events and . Patient wished to proceed with surgical intervention at this time and informed consent was obtained. 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 Holding anticoagulation Subjective Patient seen in preoperative holding, comfortable, pain improved after radiation treatment. No acute issues overnight. Review of Systems All systems reviewed & are unremarkable except as noted in HPI & below Constitutional: as per Subjective / HPI Physical Exam Vital Signs (Past 24 Hours): Last Vital Signs Temp 36.5 C 05/10/18 07:25 Pulse 47 L 05/10/18 07:57 Resp 18 05/10/18 07:25 BP 137/60 05/10/18 07:25 Pulse Ox 95 05/10/18 07:25 Physical Exam: LLE NVSI +EHL/FHL/TA/GS SILT grossly, +2 DP pulse, compartments soft NT Constitutional: WD/WN, vitals as above
[2018-05-10] MEDS ORDERED: ePHEDrine sulfate 50 MG/ML SYR ONE (10:41)
[2018-05-10] MEDS ORDERED: PHENYLEPHRINE 100MCG/ML 5ML SYR ONE (10:41)
--- NOTE | 2018-05-10 12:23 | Post Operative Brief Note ---
Immediate Post Op Note v1 Date of Surgery May 10, 2018 Pre & Post Diagnosis Operation Date: 05/10/18 08:50 Pre-Op Diagnosis: Left hip Metastatic Tumor, Impending Fracture Post-Op Diagnosis: Left hip Metastatic Tumor, Impending Fracture Procedure Operation Date: 05/10/18 08:50 Actual Procedures p Left Troch Nail(Left) - Aldo Day DO Surgeon Aldo Day DO Renewable Energy Technician none Estimated Blood Loss 85 Findings Consistent with Post-Op Diagnosis Fluids 1000cc LR Specimens femoral IM reamings Anesthesia Type General Complications none Disposition Disposition: Recovery Room Overlapping Procedure I was present for: the critical portions of procedure. I was immediately available: during the entire case. Back up surgeon: was not required during procedure.
--- NOTE | 2018-05-10 12:30 | Fluoroscopy Report ---
INTRAOPERATIVE RADIOGRAPHS CLINICAL HISTORY: Intertrochanteric and intramedullary nail placement. Fluoroscopy time: 202 seconds. FINDINGS: 9 spot fluoroscopic views of the left femur are correlated with radiographs dated 05/05/2018 and MRI dated 05/07/2018. Intertrochanteric and intramedullary nails have been placed in the left fem ur. A single cortical lag screw transfixes the distal end of the intramedullary nail. The orthopedic hardware appears intact. There is no evidence of acute fracture on these fluoroscopic views. IMPRESSION: Intraoperative images from intertrochanteric and intramedullary nail placement in the lef t femur. Electronically signed by: Edson Garcia M.D. 05/10/2018 12:29 PM
--- NOTE | 2018-05-10 12:45 | Operative Report ---
Post Operative Report Pre & Post Diagnosis Operation Date: 05/10/18 08:50 Pre-Op Diagnosis: Left hip Metastatic Tumor, Impending Fracture Post-Op Diagnosis: Left hip Metastatic Tumor, Impending Fracture Procedure Operation Date: 05/10/18 08:50 Actual Procedures p Left Troch Nail(Left) - Aldo Day DO Surgeon Aldo Day DO Mule Spinner none Estimated Blood Loss 85 Findings Consistent with Post-Op Diagnosis Fluids 1000 cc Specimens Intramedullary reamings of the femur Anesthesia Type General Complications none Disposition Disposition: Recovery Room Indications The patient is a 87yo male with significant history for metastatic prostate cancer and involvement of the left intertrochanteric hip region. MRI demonstrated at least a 8 on the Mirel's criteria. We therefore decided to proceed with prophylactic left hip long cephalo-medullary nail for impending hip fracture. The patient was medically stabilized on 05/10/2018. The patient was informed of the risks and benefits of surgery, which include but not limited to infection, bleeding, blood clots, damage to nerves, vessels, bone and soft tissue, dislocation, leg length discrepancy, malunion, nonunion, failure of the implants, need for additional surgery and . The patient collectively chose to proceed with surgical intervention and informed consent was obtained. Description of Procedure Following induction of adequate general anesthesia, the patient was placed on the fracture table. The right leg was placed in the well leg rojas and the left leg in the traction leg rojas. All bony prominences were protected. Utilizing c-arm fluoroscopy preliminary x-rays were taken of the left hip to determine starting point. The left hip and thigh was prepped and draped in the usual sterile manner. A time out was performed and site marked and patient identified. The incision was made from the tip of the greater trochanter proximally. Subcutaneous tissue was sharply dissected to the tip of the greater trochanter, electrocautery used for hemostasis. Under fluoroscopic guidance the drill tipped guidewire was inserted at the tip of the greater trochanter and advanced into the intramedullary canal. Utilizing the intramedullary drill the guidewire was overdrilled with tissue protector attached. All instruments were removed. Next a long ball-tipped guidewire was passed through the proximal opening intramedullary to the proximal pole of the patella. Guidewire position was confirmed utilizing C-arm fluoroscopy. Guidewire was measured at this time to determine length of the nail at 420 mm. An x-ray approximately was performed to verify ruler was found to bone. Next utilizing flexible reamers sequental reaming was performed in .5mm increments, a final 12.5 mm reamer was passed the length of the canal. Intramedullary reamings were collected and sent for path analysis. Care was taken to protect soft tissue proximally. A 11 x 420 millimeter long Synthes TFN was inserted and impacted into position and confirmed by c-arm fluoroscopy. Next the aiming arm was attached to the insertion handle. A incision was made and carried down through subcutaneous tissues to bone. Electrocautery was utilized for hemostasis. The blade guide sleeve was inserted and secured down to bone. The guide wire was passed across the fracture site to the tip of the femoral head, position was confirmed in the AP and lateral planes utilizing c-arm fluoroscopy. The guide pin was measured and the 11.0mm drill bit passed over the guide pin to open lateral cortex fol lowed by a 6.0mm/10.0mm cannulated reamer to a depth of 115 mm. Next the helical blade was inserted and locked proximally. Next position the C arm in anticipation for perfect [place] technique, care was taken to insure sterility was maintained. Distally a stab incision was made in the skin and carried down to bone. Utilizing the radiolucent drill with a 4.0mm drill bit, both cortices were dril led through the distal dynamic hole. The nail was locked distally using a single 4.9mm x 60 mm locking bolt. The aiming guide was removed at this time and final radiographs were obtained utilizing c-arm fluoroscopy to confirm overall position and fracture reduction. Incisions were irrigated with copious amounts of sterile saline solution. Subcutaneous tissue were injected utilizing 0.5% Marcaine with epi. Deep closure was performed using #1 Vicryl followed by 2-0 Vicryl for subcutaneous tissues and breann in the skin. Sterile dressing, Xeroform gauze, 4x4s and Tegaderm. The patient tolerated the procedure well and was transported to the PACU in stable condition. I attest to the content of the Intraoperative Record and any orders documented therein. Any exceptions are noted below.
--- NOTE | 2018-05-10 13:06 | Orthopedic Progress Note ---
Date of Service May 10, 2018 Assessment & Plan (1) Prostate cancer metastatic to bone: Status post left long hip cephalo-medullary nail -Ancef x24 -DVT prophylaxis Lovenox tomorrow in a.m. -Weight-bear as tolerated left lower extremely -PT/OT when medically stable -Postoperative x-ray demonstrates well aligned well fixed orthopedic implant without fracture dislocation -A.m. labs Subjective Post Operative Progress Note Patient seen in PACU laying in bed, comfortable, denies complaints, pain well controlled, no acute issues. Constitutional: as per Subjective / HPI Physical Exam Vital Signs (Past 24 Hours): Last Vital Signs Temp 36.2 C L 05/10/18 12:31 Pulse 60 05/10/18 13:00 Resp 18 05/10/18 13:00 BP 114/55 L 05/10/18 13:00 Pulse Ox 95 05/10/18 13:00 Physical Exam: LLE NVSI +EHL/FHL/TA/GS SILT grossly, +2 DP pulse, compartments soft NT, dressing cdi.
--- NOTE | 2018-05-10 13:23 | XRay Report ---
LEFT FEMUR 2 VIEWS CLINICAL HISTORY: Postoperative examination. FINDINGS: AP and crosstable lateral views of the left femur are compared to study dated 05/05/2018 and correlated with MRI dated 05/07/2018. The skeletal structures are osteopenic. There is no radiographi c evidence of left femoral fracture. Intertrochanteric and intramedullary nails have been placed. The orthopedic hardware appears intact. A single cortical lag screw transfixes the distal end of the int ramedullary nail. The visualized left hemipelvis appears intact. Mild degenerative change is noted in the left hip. There are expected postoperative changes including skin clips, foci of subcutaneous ga s, and soft tissue swelling. The soft tissue lesion seen by MRI was not appreciated by x-ray. IMPRESSION: 1. There is no radiographic evidence of left femoral fracture. 2. Intertrochanteric and intramedullary nails have placed as above. Electronically signed by: Edson Garcia M.D. 05/10/2018 1:21 PM
--- NOTE | 2018-05-10 13:27 | Anesthesiology Progress Note ---
Date of Service May 10, 2018 Anesthesia Post Procedure Vital Signs Vital Signs: Temp Pulse Pulse Pulse Resp BP BP 05/10/18 13:20 36.3 C L 54 L 16 105/43 L 05/10/18 13:10 36.3 C L 60 18 113/46 L 05/10/18 13:00 60 18 114/55 L 05/10/18 12:50 56 L 22 111/55 L 05/10/18 12:40 59 L 16 112/48 L 05/10/18 12:31 36.2 C L 68 18 112/51 L 05/10/18 07:57 47 L 05/10/18 07:25 36.5 C 52 L 18 137/60 05/10/18 04:26 36.5 C 51 L 16 146/65 H 05/10/18 00:00 36.5 C 70 18 144/73 H 05/09/18 19:16 36.4 C L 62 20 137/64 05/09/18 16:00 54 L 05/09/18 15:39 36.5 C 63 18 136/52 L Pulse Ox 05/10/18 13:20 93 05/10/18 13:10 95 05/10/18 13:00 95 05/10/18 12:50 95 05/10/18 12:40 97 05/10/18 12:31 97 05/10/18 07:57 05/10/18 07:25 95 05/10/18 04:26 97 05/10/18 00:00 97 05/09/18 19:16 94 05/09/18 16:00 05/09/18 15:39 90 Pain Intensity Left Hip: Pain Intensity: 0 Right Shoulder: Pain Intensity: 0 Notes Mental Status: alert / awake / arousable Patient Amnestic to Procedure: Yes Nausea / Vomiting: adequately controlled Pain: adequately controlled Airway Patency, RR, SpO2: stable & adequate BP & HR: stable & adequate Hydration State: stable & adequate Anesthetic Complications: no major complications apparent Notes: Awake, doing well, no complaints, VSS
[2018-05-10] MEDS ORDERED: NALOXONE HCL 0.4 MG/1 ML VIAL/CARP IV PRN (13:50)
[2018-05-10] MEDS ORDERED: HYDROmorphone INJ 0.5 MG/0.5 ML SYR IV PRN (13:50)
[2018-05-10] MEDS ORDERED: COUGH DROP (SUGAR FREE) LOZ 24 LOZ/1 BOX BUCCAL PRN (13:50)
[2018-05-10] MEDS: SODIUM CHLORIDE 0.9% 1000ML 1,000 ML IV SCH (15:37)
--- NOTE | 2018-05-10 18:11 | Hospitalist Progress Note ---
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 tapering steroids -currently at Decadron 4mg IV q8h --> go to q12 consider long-acting narcotic if needed. appreciate ortho evaluation - to have prophylactic stabilization procedure of left hip tomorrow-rescheduled. appreciate rad onc evaluation - to begin xrt to pelvis and lumbar spine probably early this coming week. cont casodex daily. (2) Prostate cancer metastatic to multiple sites: PET scan in March and CT left hip with bone mets in and around hip. Als o with left scapular fracture pathologic, and numerous pulm nodules MRI left hip shows considerable tumor burden in the intertrochanteric area of the hip joint;now s/p prophylactic dariusz procedure to prevent pathological fx on 05/10 (3) Left leg pain: multifactorial - femur mets, SI joint mets on left, l-spine mets, etc pain control - see plan above s/p dariusz stabilization radiation next week (4) Acute kidney injury: resolved Follow BMP (5) Abnormal EKG: echo w/o wall motion abnormalities no ischemic symptoms since admission troponin negative since admission no history of CAD (6) HTN (hypertension): continue home meds but continue to HOLD ARB perioperatively to avoid CAMPOS resume ARB 24 hours post-op if creatinine is stable -will also continue to hold amlodipine today for low normal BPs (7) Constipation: No BM in 6 days continue senna + miralax -add Bisacodyl NM again daily prn -add Mag citrate bottle x 1 now (8) Chronic kidney disease, stage 3a: creatinine stable/at baseline at 1.2 BMP in am -avoid nephrotoxins -renally dose all meds when appropriate (9) Dysphagia: patient reports frequent throat clearing and cough during meals. speech therapy consult appreciated he also mentions some reflux type symptoms -- continue zantac BID. (10) Nonsustained ventricular tachycardia: 10 beat run of this on 05/10, asymptomatic Otherwise with sinus kim and NSR in the 60s -already on Toprol XL 100mg daily and cannot increase dose due to bradycardia -continue Toprol 100mg daily -EF normal on ECHO, nothing else to do -continue tele monitring overnight and if stable in AM, can transfer to Surgical floor (11) DVT prophylaxis: Starting Lovenox in AM x 3 weeks PT, OT Dispo-remain hospitalized, planning for [facility] transfer after recovery from hip surgery, also needs to start XRT Subjective Pt feeling well after surgery today, pain controlled in the hip and femur. Denies headache or lightheadedness, no nausea, he is sushant po. Denies CP or SOB. He did recently have a 10 beat run of VT on tele and was asymptomatic. Otherwise on tele with SB rates 40s-60s, low of 37 Review of Systems All systems reviewed & are unremarkable except as noted in HPI & below Physical Exam Vital Signs (Past 24 Hours): Last Vital Signs Temp 36.5 C 05/10/18 16:20 Pulse 63 05/10/18 16:20 Resp 18 05/10/18 16:20 BP 101/61 05/10/18 16:20 Pulse Ox 94 05/10/18 16:20 Constitutional: WD/WN, vitals as above Eyes: PERRL, conjunctivae normal, anicteric sclerae ENMT: Ears: no hearing impairment Neck: trachea midline, no thyromegaly Respiratory: normal respiratory effort, lungs clear to auscultation Cardiovascular: Rate/Rhythm: regular rhythm and + bradycardic Heart Sounds: no murmur Extremities: no edema Gastrointestinal (Abdomen): normal bowel sounds, soft, nontender, no hepatosplenomegaly Musculoskeletal: Extremities: + extremities abnormal to inspection (left hip and lateral left knee with dressings in place c/d/i), no cyanosis and no clubbing Skin: no rashes, warm and dry Neurologic: moves all extremities and awake; no focal motor deficits Psychiatric: A+Ox3, euthymic affect Results & Data Laboratory Results 05/10/18 Range/Units 06:55 WBC 14.33 H (4.8-10.8) K/uL RBC 4.27 L (4.7-6.1) M/uL Hgb 11.7 L (14.0-18.0) g/dL Hct 35.9 L (42-52) % MCV 84.1 (80-100) fL MCH 27.4 (25-34) pg MCHC 32.6 (32-36) g/dL RDW Std Deviation 44.3 (36.4-46.3) fL RDW Coeff of Salo 14.5 (11.5-14.5) % Plt Count 253 (130-400) K/uL MPV 10.2 (7.4-10.4) fL Immature Gran % (Auto) 0.4 % Neut % (Auto) 90.5 % Lymph % (Auto) 2.0 % [place] % (Auto) 7.0 % Eos % (Auto) 0.1 % Baso % (Auto) 0.0 % Immature Gran # (Auto) 0.06 H (0.00-0.02) K/uL Neut # (Auto) 12.97 H (1.4-6.5) K/uL Lymph # (Auto) 0.28 L (1.2-3.4) K/uL [place] # (Auto) 1.01 H (0.11-0.59) K/uL Eos # (Auto) 0.01 (0-0.5) K/uL Baso # (Auto) 0.00 (0-0.2) K/uL Diagnostic Findings Hip and femur xrays personally reviewed images and agree with following reports: LEFT FEMUR 2 VIEWS CLINICAL HISTORY: Postoperative examination. FINDINGS: AP and crosstable lateral views of the left femur are compared to study dated 05/05/2018 and correlated with MRI dated 05/07/2018. The skeletal structures are osteopenic. There is no radiographic evidence of left femoral fracture. Intertrochanteric and intramedullary nails have been placed. The orthopedic hardware appears intact. A single cortical lag screw transfixes the distal end of the intramedullary nail. The visualized left hemipelvis appears intact. Mild degenerative change is noted in the left hip. There are expected postoperative changes including skin clips, foci of subcutaneous gas, and soft tissue swelling. The soft tissue lesion seen by MRI was not appreciated by x-ra y. IMPRESSION: 1. There is no radiographic evidence of left femoral fracture. 2. Intertrochanteric and intramedullary nails have placed as above. (1) HTN (hypertension) Hypertension type: essential hypertension Qualified Code(s): I10 - Essential (primary) hypertension (2) Constipation Constipation type: other constipation type Qualified Code(s): K59.09 - Other constipation (3) Dysphagia Dysphagia type: unspecified Qualified Code(s): R13.10 - Dysphagia, unspecified
[2018-05-10] MEDS ORDERED: BISACODYL 10 MG SUPP PR PRN (18:21)
[2018-05-10] MEDS ORDERED: MAGNESIUM CITRATE 296 ML/BTL PO STA (18:21)
[2018-05-10] MEDS: CEFAZOLIN 2000MG 2,000 MG/15 ML SYR IV SCH (19:05)
[2018-05-10] MEDS: OXYCODONE HCL IR 5 MG TAB (IMMEDIATE RELEASE) PO PRN (20:14)
[2018-05-11] MEDS: CEFAZOLIN 2000MG 2,000 MG/15 ML SYR IV SCH (02:24)
[2018-05-11] MEDS: SODIUM CHLORIDE 0.9% 1000ML 1,000 ML IV SCH ×2 (02:24→13:14)
[2018-05-11 06:31] LABS: Hematocrit (blood only) 30.1 % (42-52); Hemoglobin 9.7 g/dL (14.0-18.0); Immature Granulocytes # (auto) 0.05 K/uL (0.00-0.02); Immature Granulocytes % (auto) 0.4 %; Lymphocytes # (auto) 0.85 K/uL (1.2-3.4); Lymphocytes % (auto) 6.6 %; Mean Corpuscular Hgb Conc 32.2 g/dL (32-36); Mean Platelet Volume 10.1 fL (7.4-10.4); Monocytes # (auto) 0.86 K/uL (0.11-0.59); Monocytes % (auto) 6.6 %; Neutrophils # (auto) 11.19 K/uL (1.4-6.5); Neutrophils % (auto) 86.4 %; Platelet Count 189 K/uL (130-400); RDW Coefficient of Variation 14.6 % (11.5-14.5); RDW Standard Deviation 45.8 fL (36.4-46.3); Red Blood Count 3.54 M/uL (4.7-6.1); White Blood Count 12.95 K/uL (4.8-10.8)
[2018-05-11 07:04] LABS: BUN Creatinine Ratio 32.6 (10-20); Calcium 7.5 mg/dl (8.5-10.1); Creatinine Clr Calc Pharmacy 43.9 ml/min; Est GFR (African American) 59.3; Est GFR (Non-African American) 51.2; Potassium 4.5 mmol/L (3.5-5.1)
[2018-05-11] MEDS: LIDOCAINE 5% 1 PATCH TD SCH (09:04)
[2018-05-11] MEDS: ASPIRIN 81 MG ECTAB PO SCH (09:04)
[2018-05-11] MEDS: DEXAMETHASONE SOD PHOSPHATE 4 MG in SYRINGE 0 ML IV SCH ×2 (09:04→21:01)
[2018-05-11] MEDS: ENOXAPARIN INJ 40 MG/0.4 ML SYR SQ SCH (09:05)
[2018-05-11] MEDS: CEROVITE ADV FORMULA TAB PO SCH (09:06)
[2018-05-11] MEDS: METOPROLOL SUCC 50MG EXT REL TAB PO SCH (09:07)
[2018-05-11] MEDS: ACETAMINOPHEN 500 MG TAB PO SCH ×3 (09:07→21:06)
[2018-05-11] MEDS: BICALUTAMIDE 50 MG TAB PO SCH (09:08)
[2018-05-11] MEDS: SENNA 8.6 MG TAB PO SCH (09:08)
[2018-05-11] MEDS: POLYETHYLENE (MIRALAX) 17 GM PACK PO SCH (09:38)
--- NOTE | 2018-05-11 10:12 | Progress Note ---
DATE: 05/11/2018 SUBJECTIVE: Catarino is postop day 1 of left prophylactic nailing of intramedullary hip nail for metastatic lesion, doing well. He has no new complaints. He is in good spirits and verbalizes minimal pain. OBJECTIVE: Left leg exam: Calf is soft. Dressings are clean and dry. Hip incision does show moderate dried serous drainage on the bandage. He is grossly neurovascularly intact and flex and extend the ankle and the foot. IMAGING: Radiographs show excellent alignment, status post prophylactic nailing of the hip. ASSESSMENT: Postop day 1 intramedullary nail, left hip for metastatic lesion. PLAN: At this point in time, from orthopedic standpoint, he may be weightbearing as tolerated. May continue Lovenox. We will continue care as per hospitalist. He may be up with physical therapy from our standpoint today.
[2018-05-11] MEDS: OXYCODONE HCL IR 5 MG TAB (IMMEDIATE RELEASE) PO PRN ×2 (13:15→22:44)
--- NOTE | 2018-05-11 18:24 | Hospitalist Progress Note ---
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 tapering steroids -currently at Decadron 4mg IV q12h --> will change to po decadron 4mg bid Appreciate ortho evaluation - now s/p prophylactic stabilization procedure of left hip on 05/09 Appreciate rad onc evaluation - to begin xrt to pelvis and lumbar spine probably early this coming week-need to determine if should remain inpatient for this vs go to rehab and get transported back. -cont casodex daily. (2) Prostate cancer metastatic to multiple sites: PET scan in March and CT left hip with bone mets in and around hip. Also with left scapular fracture pathologic, and numerous pulm nodules MRI left hip shows considerable tumor burden in the intertrochanteric area of the hip joint;now s/p prophylactic dariusz procedure to prevent pathological fx on 05/10 -has lidocaine patch in place over left scapula and no pain there now (3) Left leg pain: multifactorial - femur mets, SI joint mets on left, l-spine mets, etc pain control - see plan above s/p dariusz stabilization radiation next week (4) Acute kidney injury: resolved Follow BMP (5) Abnormal EKG: echo w/o wall motion abnormalities no ischemic symptoms since admission troponin negative since admission no history of CAD (6) HTN (hypertension): continue home meds but continue to hold losartan and amlodipine today for low normal BPs -can restart when BP can tolerate -continue Toprol XL 100mg daily (7) Constipation: No BM in 7 days now despite multiple laxatives, suppositories and sof teners continue senna + miralax daily -give another Bisacodyl CT x 1 now -give another bottle of Mag citrate x 1 now (8) Chronic kidney disease, stage 3a: creatinine stable/at baseline at 1.2 BMP in am -avoid nephrotoxins -renally dose all meds when appropriate (9) Dysphagia: patient reports frequent throat clearing and cough during meals. speech therapy consult appreciated-recommend soft, bote sized food and follow other Speech recommendations he also mentions some reflux type symptoms -- continue zantac BID. (10) Nonsustained ventricular tachycardia: 10 beat run of this on 05/10, asymptomatic, none since then Otherwise with sinus kim and NSR in the 70s-80s now -already on Toprol XL 100mg daily and cannot increase dose due to bradycardia -continue Toprol 100mg daily -EF normal on ECHO, nothing else to do -can dc tele and can transfer to Surgical floor today (11) Acute blood loss anemia: hgb dropped today to 9 from 11, secondary to surgical blood loss hemodynamically stable -follow CBC in AM and transfuse if hgb<7-8 (12) DVT prophylaxis: -continue Lovenox SQ daily x 3 weeks PT, OT recommending rehab Dispo- planning for [facility] transfer -need to arrange plans for XRT prior to discharge--> possibly dc Saturday or Saturday Subjective Doing very well, has minimal pain-controlled. Denies lightheadedness, no chest pain or SOB. No left scapular pain with lidocaine patch in place. Denies nausea or abd pain. Still no BM in 6 days now. Tele with NSR, some SB, some sinus tach to 120s, but overall rates in 70s-80s Physical Exam Vital Signs (Past 24 Hours): Last Vital Signs Temp 36.6 C 05/11/18 15:17 Pulse 87 05/11/18 16:00 Resp 22 05/11/18 15:17 BP 135/55 L 05/11/18 15:17 Pulse Ox 96 05/11/18 15:17 Constitutional: WD/WN, vitals as above Eyes: PERRL, conjunctivae normal, anicteric sclerae ENMT: external ear and nose normal, oropharynx normal Ears: no hearing impairment Neck: trachea midline, no thyromegaly Respiratory: normal respiratory effort, lungs clear to auscultation Cardiovascular: Rate/Rhythm: regular rhythm and + bradycardic Heart Sounds: no murmur Extremities: no edema Gastrointestinal (Abdomen): normal bowel sounds, soft, nontender, no hepatosplenomegaly Musculoskeletal: Extremities: + extremities abnormal to inspection (left hip and lateral left knee with dressings in place-blood soaked on one), no cyanosis and no clubbing Skin: no rashes, warm and dry Neurologic: moves all extremities and awake; no focal motor deficits Psychiatric: A+Ox3, euthymic affect Results & Data Laboratory Results 05/11/18 05/11/18 Range/Units 06:17 06:17 WBC 12.95 H (4.8-10.8) K/uL RBC 3.54 L (4.7-6.1) M/uL Hgb 9.7 L (14.0-18.0) g/dL Hct 30.1 L (42-52) % MCV 85.0 (80-100) fL MCH 27.4 (25-34) pg MCHC 32.2 (32-36) g/dL RDW Std Deviation 45.8 (36.4-46.3) fL RDW Coeff of Salo 14.6 H (11.5-14.5) % Plt Count 189 (130-400) K/uL MPV 10.1 (7.4-10.4) fL Immature Gran % (Auto) 0.4 % Neut % (Auto) 86.4 % Lymph % (Auto) 6.6 % [place] % (Auto) 6.6 % Eos % (Auto) 0.0 % Baso % (Auto) 0.0 % Immature Gran # (Auto) 0.05 H (0.00-0.02) K/uL Neut # (Auto) 11.19 H (1.4-6.5) K/uL Lymph # (Auto) 0.85 L (1.2-3.4) K/uL [place] # (Auto) 0.86 H (0.11-0.59) K/uL Eos # (Auto) 0.00 (0-0.5) K/uL Baso # (Auto) 0.00 (0-0.2) K/uL Sodium 135 L (136-145) mmol/L Potassium 4.5 (3.5-5.1) mmol/L Chloride 104 (98-107) mmol/L Carbon Dioxide 29 (21-32) mmol/L Anion Gap 2.0 L (3-11) BUN 41 H (7-18) mg/dl Creatinine 1.27 (0.6-1.4) mg/dl Est Cr Clr Drug Dosing 43.9 ml/min Est GFR ( Amer) 59.3 Est GFR (Non-Af Amer) 51.2 BUN/Creatinine Ratio 32.6 H (10-20) Glucose 139 H (70-99) mg/dl Calcium 7.5 L (8.5-10.1) mg/dl (1) Dysphagia Dysphagia type: unspecified Qualified Code(s): R13.10 - Dysphagia, unspecified (2) HTN (hypertension) Hypertension type: essential hypertension Qualified Code(s): I10 - Essential (primary) hypertension (3) Constipation Constipation type: other constipation type Qualified Code(s): K59.09 - Other constipation
[2018-05-11] MEDS ORDERED: MAGNESIUM CITRATE 296 ML/BTL PO STA (18:27)
[2018-05-12 07:05] LABS: Hematocrit (blood only) 30.6 % (42-52); Hemoglobin 9.7 g/dL (14.0-18.0); Immature Granulocytes # (auto) 0.16 K/uL (0.00-0.02); Immature Granulocytes % (auto) 1.1 %; Lymphocytes # (auto) 0.92 K/uL (1.2-3.4); Lymphocytes % (auto) 6.4 %; Mean Corpuscular Hgb Conc 31.7 g/dL (32-36); Mean Corpuscular Volume 85.2 fL (80-100); Mean Platelet Volume 10.1 fL (7.4-10.4); Monocytes # (auto) 0.89 K/uL (0.11-0.59); Monocytes % (auto) 6.2 %; Neutrophils # (auto) 12.34 K/uL (1.4-6.5); Neutrophils % (auto) 86.3 %; Platelet Count 181 K/uL (130-400); RDW Coefficient of Variation 14.8 % (11.5-14.5); RDW Standard Deviation 46.2 fL (36.4-46.3); Red Blood Count 3.59 M/uL (4.7-6.1); White Blood Count 14.31 K/uL (4.8-10.8)
[2018-05-12 07:34] LABS: BUN Creatinine Ratio 32.3 (10-20); Calcium 7.9 mg/dl (8.5-10.1); Creatinine Clr Calc Pharmacy 49.8 ml/min; Est GFR (African American) 69.1; Est GFR (Non-African American) 59.6; Potassium 4.7 mmol/L (3.5-5.1)
[2018-05-12] MEDS: SENNA 8.6 MG TAB PO SCH (08:59)
[2018-05-12] MEDS: ENOXAPARIN INJ 40 MG/0.4 ML SYR SQ SCH (09:01)
[2018-05-12] MEDS: ASPIRIN 81 MG ECTAB PO SCH (09:01)
[2018-05-12] MEDS: LIDOCAINE 5% 1 PATCH TD SCH (09:02)
[2018-05-12] MEDS: BICALUTAMIDE 50 MG TAB PO SCH (09:02)
[2018-05-12] MEDS: DEXAMETHASONE SOD PHOSPHATE 4 MG in SYRINGE 0 ML IV SCH (09:02)
[2018-05-12] MEDS: CEROVITE ADV FORMULA TAB PO SCH (09:03)
[2018-05-12] MEDS: METOPROLOL SUCC 50MG EXT REL TAB PO SCH (09:03)
[2018-05-12] MEDS: ACETAMINOPHEN 500 MG TAB PO SCH ×3 (09:07→21:14)
[2018-05-12] MEDS: POLYETHYLENE (MIRALAX) 17 GM PACK PO SCH (09:08)
[2018-05-12] MEDS: OXYCODONE HCL IR 5 MG TAB (IMMEDIATE RELEASE) PO PRN (10:17)
--- NOTE | 2018-05-12 10:31 | Radiation Oncology Progress Nt ---
Date of Service May 12, 2018 Assessment & Plan (1) Prostate cancer metastatic to bone: Patient is now status post open reduction internal fixation with dariusz stabilization of left femur. Patient underwent successful completion of procedure on 05/10/[address] Le. I have spoken with the patient today and have recommended that we now proceed with re-simulation for palliative external beam radiation therapy to the left femur and pelvis with the goal of reducing his overall pain. We will have him come down for CT simulation today for treatment planning. The patient understands the plan and is agreeable to proceeding with radiation therapy. The patient's treatment may start after the patient is discharged from the hospital. Please call us with any further questions or concerns. Lauren Quezada MD Radiation Oncology Present on Admission?: Yes
--- NOTE | 2018-05-12 12:18 | Orthopedic Progress Note ---
Date of Service May 12, 2018 Assessment & Plan (1) Prostate cancer metastatic to bone: Status post left long hip cephalo-medullary nail -DVT prophylaxis Lovenox daily. -Weight-bear as tolerated left lower extremely -PT/OT when medically stable Ortho will sign off at this time. Instructions placed in EMR. Call with any questions. Subjective POD 2 s/p Left Prophylactic TFN due to tumor Pt was ambulating in the room from the BR to the chair under supervision. Pt was ambulating well. States he feels better since having the TFN put in. Having less pain with ambulation. Overall, he feels well and feels he is improving daily. Physical Exam Vital Signs (Past 24 Hours): Last Vital Signs Temp 36.5 C 05/12/18 07:45 Pulse 70 05/12/18 07:45 Resp 14 05/12/18 07:45 BP 142/78 H 05/12/18 07:45 Pulse Ox 96 05/12/18 07:45 Physical Exam: Dressings C/D/I. Calves soft, NT; NV intact. Results & Data Laboratory Results 05/12/18 05/12/18 Range/Units 06:45 06:45 WBC 14.31 H (4.8-10.8) K/uL RBC 3.59 L (4.7-6.1) M/uL Hgb 9.7 L (14.0-18.0) g/dL Hct 30.6 L (42-52) % MCV 85.2 (80-100) fL MCH 27.0 (25-34) pg MCHC 31.7 L (32-36) g/dL RDW Std Deviation 46.2 (36.4-46.3) fL RDW Coeff of Salo 14.8 H (11.5-14.5) % Plt Count 181 (130-400) K/uL MPV 10.1 (7.4-10.4) fL Immature Gran % (Auto) 1.1 % Neut % (Auto) 86.3 % Lymph % (Auto) 6.4 % [place] % (Auto) 6.2 % Eos % (Auto) 0.0 % Baso % (Auto) 0.0 % Immature Gran # (Auto) 0.16 H (0.00-0.02) K/uL Neut # (Auto) 12.34 H (1.4-6.5) K/uL Lymph # (Auto) 0.92 L (1.2-3.4) K/uL [place] # (Auto) 0.89 H (0.11-0.59) K/uL Eos # (Auto) 0.00 (0-0.5) K/uL Baso # (Auto) 0.00 (0-0.2) K/uL Sodium 137 (136-145) mmol/L Potassium 4.7 (3.5-5.1) mmol/L Chloride 104 (98-107) mmol/L Carbon Dioxide 28 (21-32) mmol/L Anion Gap 5.0 (3-11) BUN 36 H (7-18) mg/dl Creatinine 1.12 (0.6-1.4) mg/dl Est Cr Clr Drug Dosing 49.8 ml/min Est GFR ( Amer) 69.1 Est GFR (Non-Af Amer) 59.6 BUN/Creatinine Ratio 32.3 H (10-20) Glucose 133 H (70-99) mg/dl Calcium 7.9 L (8.5-10.1) mg/dl
--- NOTE | 2018-05-12 14:38 | Hospitalist Progress Note ---
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 tapering steroids -currently at Decadron 4mg IV q12h --> will change to po decadron 4mg bid Appreciate ortho evaluation - now s/p prophylactic stabilization procedure of left hip on 05/09 Appreciate rad onc evaluation - to begin xrt to pelvis and lumbar spine Saturday or - will require 10 daily treatments (2) Prostate cancer metastatic to multiple sites: PET scan in March and CT left hip with bone mets in and around hip. Also with left scapular fracture pathologic, and numerous pulm nodules MRI left hip shows considerable tumor burden in the intertrochanteric area of the hip joint;now s/p prophylactic dariusz procedure to prevent pathological fx on 05/10 -has lidocaine patch in place over left scapula and no pain there now (3) Left leg pain: multifactorial - femur mets, SI joint mets on left, l-spine mets, etc pain control - see plan above s/p dariusz stabilization radiation as above (4) Acute kidney injury: resolved Follow BMP (5) Abnormal EKG: echo w/o wall motion abnormalities no ischemic symptoms since admission troponin negative since admission no history of CAD (6) HTN (hypertension): continue home meds and restart losartan and amlodipine today -continue Toprol XL 100mg daily (7) Constipation: Resolved (8) Chronic kidney disease, stage 3a: creatinine stable/at baseline at 1.2 BMP in am -avoid nephrotoxins -renally dose all meds when appropriate (9) Dysphagia: patient reports frequent throat clearing and cough during meals. speech therapy consult appreciated-recommend soft, bote sized food and follow other Speech recommendations he also mentions some reflux type symptoms -- continue zantac BID. (10) Nonsustained ventricular tachycardia: 10 beat run of this on 05/10, asymptomatic, none since then Otherwise with sinus kim and NSR -already on Toprol XL 100mg daily and cannot increase dose due to bradycardia -continue Toprol 100mg daily -EF normal on ECHO, nothing else to do (11) Acute blood loss anemia: hgb stable around 9.7 hemodynamically stable (12) DVT prophylaxis: -continue Lovenox SQ daily x 3 weeks PT, OT recommending rehab - needs re-eval for auth per case management Subjective Mr. Gann feels well, up to a chair, did well with PT, pain well controlled Review of Systems All systems reviewed & are unremarkable except as noted in HPI & below Physical Exam Vital Signs (Past 24 Hours): Last Vital Signs Temp 36.5 C 05/12/18 07:45 Pulse 70 05/12/18 07:45 Resp 14 05/12/18 07:45 BP 142/78 H 05/12/18 07:45 Pulse Ox 96 05/12/18 07:45 Physical Exam: General: no distress Eyes: normal inspection, PERLL Respiratory: chest non tender, clear to auscultation, normal breath sounds, no respiratory distress, no accessory muscle use Cardiac: regular rate and rhythm, no rub or gallop, no murmur, no edema, no jvd GI/: active bowel sounds, no abd pain or tenderness, soft, non distended Extremities: normal range of motion, normal strength, non tender Neuro/Psych: alert and oriented x 3, normal mood and affect Skin: normal color, dry Results & Data Laboratory Results Abnormal lab results 05/12/18 05/12/18 Range/Units 06:45 06:45 WBC 14.31 H (4.8-10.8) K/uL RBC 3.59 L (4.7-6.1) M/uL Hgb 9.7 L (14.0-18.0) g/dL Hct 30.6 L (42-52) % MCHC 31.7 L (32-36) g/dL RDW Coeff of Salo 14.8 H (11.5-14.5) % Immature Gran # (Auto) 0.16 H (0.00-0.02) K/uL Neut # (Auto) 12.34 H (1.4-6.5) K/uL Lymph # (Auto) 0.92 L (1.2-3.4) K/uL [place] # (Auto) 0.89 H (0.11-0.59) K/uL BUN 36 H (7-18) mg/dl BUN/Creatinine Ratio 32.3 H (10-20) Glucose 133 H (70-99) mg/dl Calcium 7.9 L (8.5-10.1) mg/dl (1) HTN (hypertension) Hypertension type: essential hypertension Qualified Code(s): I10 - Essential (primary) hypertension (2) Constipation Constipation type: other constipation type Qualified Code(s): K59.09 - Other constipation (3) Dysphagia Dysphagia type: unspecified Qualified Code(s): R13.10 - Dysphagia, unspecified
[2018-05-12] MEDS: dexAMETHasone 4 MG TAB PO SCH (22:10)
[2018-05-13 06:37] LABS: Basophils # (auto) 0.01 K/uL (0-0.2); Basophils % (auto) 0.1 %; Hematocrit (blood only) 28.4 % (42-52); Hemoglobin 9.2 g/dL (14.0-18.0); Immature Granulocytes # (auto) 0.21 K/uL (0.00-0.02); Immature Granulocytes % (auto) 1.3 %; Lymphocytes # (auto) 0.93 K/uL (1.2-3.4); Lymphocytes % (auto) 5.8 %; Mean Corpuscular Hgb Conc 32.4 g/dL (32-36); Mean Corpuscular Volume 85.5 fL (80-100); Mean Platelet Volume 10.1 fL (7.4-10.4); Monocytes # (auto) 1.26 K/uL (0.11-0.59); Monocytes % (auto) 7.9 %; Neutrophils % (auto) 84.9 %; Platelet Count 185 K/uL (130-400); RDW Coefficient of Variation 14.9 % (11.5-14.5); RDW Standard Deviation 46.2 fL (36.4-46.3); Red Blood Count 3.32 M/uL (4.7-6.1); White Blood Count 16.01 K/uL (4.8-10.8)
[2018-05-13 07:13] VITALS: BP 133/64; TEMP 98.1; O2SAT 94
[2018-05-13 07:13] LABS: BUN Creatinine Ratio 27.8 (10-20); Creatinine Clr Calc Pharmacy 47.3 ml/min; Est GFR (African American) 64.8; Est GFR (Non-African American) 55.9
--- NOTE | 2018-05-13 08:27 | Orthopedic Progress Note ---
Date of Service May 13, 2018 Assessment & Plan (1) Prostate cancer metastatic to bone: Status post left long hip cephalo-medullary nail POD#3 -DVT prophylaxis Lovenox daily. -Weight-bear as tolerated left lower extremely -PT/OT when medically stable -Rads therapy per radiology oncology -IO path pending Ortho will sign off at this time. Instructions placed in EMR. Call with any questions. Please follow up in office 10-14 days, . Subjective Post Operative Progress Note Patient seen sitting up in bed, comfortable, denies complaints, pain well controlled, no acute issues. Constitutional: as per Subjective / HPI Physical Exam Vital Signs (Past 24 Hours): Last Vital Signs Temp 36.7 C 05/13/18 07:12 Pulse 58 L 05/13/18 07:12 Resp 14 05/13/18 07:12 BP 133/64 05/13/18 07:12 Pulse Ox 94 05/13/18 07:12 Physical Exam: LLE NVSI +EHL/FHL/TA/GS SILT grossly, +2 DP pulse, compartments soft NT, dressing cdi. +echymosis lateral thigh Constitutional: WD/WN, vitals as above
[2018-05-13] MEDS: ENOXAPARIN INJ 40 MG/0.4 ML SYR SQ SCH (08:48)
[2018-05-13] MEDS: POLYETHYLENE (MIRALAX) 17 GM PACK PO SCH (08:48)
[2018-05-13] MEDS: LIDOCAINE 5% 1 PATCH TD SCH (08:48)
[2018-05-13] MEDS: AMLODIPINE BESYLATE 5 MG TAB PO SCH (08:49)
[2018-05-13] MEDS: BICALUTAMIDE 50 MG TAB PO SCH (08:49)
[2018-05-13] MEDS: ASPIRIN 81 MG ECTAB PO SCH (08:49)
[2018-05-13] MEDS: dexAMETHasone 4 MG TAB PO SCH (08:49)
[2018-05-13] MEDS: SENNA 8.6 MG TAB PO SCH (08:50)
[2018-05-13] MEDS: ACETAMINOPHEN 500 MG TAB PO SCH ×2 (08:50→13:59)
[2018-05-13] MEDS ORDERED: LOSARTAN POTASSIUM 50 MG TAB PO SCH (09:00)
[2018-05-13] MEDS ORDERED: AMLODIPINE BESYLATE 5 MG TAB PO SCH (09:00)
[2018-05-13] MEDS: METOPROLOL SUCC 50MG EXT REL TAB PO SCH (09:28)
[2018-05-13] MEDS: CEROVITE ADV FORMULA TAB PO SCH (09:28)
[2018-05-13 13:53] VITALS: PULSE 70
--- NOTE | 2018-05-13 14:10 | Discharge Summary ---
Date of Service May 13, 2018 Admission HPI Per Admitting Provider 87 y/o M c/o L UE pain and LLE weakness. Pt has been in active tx for metastatic prostate cancer. He is taking chemo for his prostate and just finished radiation for mets to the L scapula last week. He has been having ongoing pain to the L shoulder since October and it has continued to worsen. He was taking oxycodone 5mg TID but this was making him "woozy" and wasn't helping the pain much, so it was changed to 10mg BID. This does not make him woozy, but it is not helping his pain. Ability to use his L UE is limited due to pain. He also started having L LE pain starting in the buttock and moving into the LE. He was sent to therapy and it was noted that he had a rather large wallet on the L side. He stopped carrying this and completed a course of PT, however still having pain. He has had progressive weakness to the L LE as well. He can mangage around his home, but has to move slowly. He has stairs in his home and he can manage those slowly and one step at a time. He has difficulty going to the grocery or other stores with a lot of walking. His R UE and R LE are WNL. His weakness has progressed to where he fell this AM and could not get up for some time. He is also having difficulty getting in and out of the shower. Pt lives alone. Pt states his appetite is very decreased due to no taste. He has just started Boost and is tolerating those. He has no other GI issues. Pt denies fever, SOB, chest pain, abd pain, n/v/c/d, LE swelling. Pt had a skin cancer removed recently with Dr. Holden. Sutures are to come out . 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 Discharge Exam Constitutional WD/WN, vitals as above Respiratory normal respiratory effort, lungs clear to auscultation Cardiovascular Rate/Rhythm: regular rate and regular rhythm Heart Sounds: + murmur Gastrointestinal (Abdomen) normal bowel sounds, soft, nontender, no hepatosplenomegaly Musculoskeletal no cyanosis or clubbing, extremities motor strength 5/5 Skin incision well approximated, breann intact, no drainage Neurologic moves all extremities and awake Psychiatric A+Ox3, euthymic affect Discharge Data Allergies Allergy/AdvReac Type Severity Reaction Status Date / Time No Known Allergies Allergy Unverified 05/05/18 10:55 Consultations 05/05/18 12:15 ED Decision to Admit Stat 05/05/18 16:01 Consult Case Management - Discharge Planning Routine 05/06/18 17:59 Consult Orthopedic Surgery Routine Consult Radiation Oncology Routine 05/10/18 13:50 Consult Case Management - Discharge Planning Routine Procedures Performed Operation Date: 05/10/18 08:50 Actual Procedures p Left Troch Nail(Left) - Aldo Day DO Ordered Studies 05/05/18 10:11 CT head/brain wo con Stat 05/06/18 11:16 CT hip LT wo con Urgent MR lumbar spine wo/w con Urgent 05/07/18 12:01 MR femur LT wo/w con Routine 05/10/18 07:21 FL fluoroscopy <1hr Routine FL hip LT 2-3V Routine Hospital Course (1) 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 tapering steroids -currently at Decadron 4mg IV q12h --> continue to taper per dc instructions Appreciate ortho evaluation - now s/p prophylactic stabilization procedure of left hip on 05/09 Appreciate rad onc evaluation - to begin xrt to pelvis and lumbar spine Saturday or - will require 10 daily treatments (2) Prostate cancer metastatic to multiple sites: PET scan in March and CT left hip with bone mets in and around hip. Also with left scapular fracture pathologic, and numerous pulm nodules MRI left hip shows considerable tumor burden in the intertrochanteric area of the hip joint;now s/p prophylactic dariusz procedure to prevent pathological fx on 05/10 (3) Left leg pain: multifactorial - femur mets, SI joint mets on left, l-spine mets, etc pain control - see plan above s/p dariusz stabilization radiation as above (4) Acute kidney injury: resolved Follow BMP (5) Abnormal EKG: echo w/o wall motion abnormalities no ischemic symptoms since admission troponin negative since admission no history of CAD (6) HTN (hypertension): continue losartan and amlodipine -continue Toprol XL 100mg daily (7) Constipation: Resolved (8) Chronic kidney disease, stage 3a: With CAMPOS on admission creat 1.7 - now creatinine stable/at baseline at 1.2 -avoid nephrotoxins -renally dose all meds when appropriate (9) Dysphagia: patient reports frequent throat clearing and cough during meals. speech therapy consult appreciated-recommend soft, bite sized food and follow other Speech recommendations he also mentions some reflux type symptoms -- continue zantac BID. (10) Nonsustained ventricular tachycardia: 10 beat run of this on 05/10, asymptomatic, none since then Otherwise with sinus kim and NSR -already on Toprol XL 100mg daily and cannot increase dose due to bradycardia -continue Toprol 100mg daily -EF normal on ECHO, nothing else to do (11) Acute blood loss anemia: hgb stable around 9.7 hemodynamically stable (12) DVT prophylaxis: -continue Lovenox SQ daily x 3 weeks Dispo: to [facility] Total Time Total Time Spent Total Time Spent (In Minutes): greater than 30 minutes Discharge Plan Discharge Items Patient Disposition: Transfer Inpatient Rehab Fac Reason For Visit: WEAKNESS Discharge Diagnosis: Prostate cancer with metastasis to the pelvis Discharge Goals: Decrease discomfort Activity: Resume your previous activity Activity Comment: WBAT Lifting: Gradually increase as tolerated Non-emergency contact: Primary Care Provider Call non-emergency contact if: you have any medication questions, your symptoms worsen and your pain is not controlled Follow-up/Referrals: Ramu Duron, [Primary Care Provider] - Diet: Regular Diet Texture: Dental soft (bite-sized) Addtl Provider Instructions: Patient will need to start radiation treatments with Dr. Quezada on Saturday or per their office. He will need 10 daily treatments. He will also need to follow up with his oncologist Dr. Barrett and Dr. Day from orthopedic surgery Taper steroid as follows: dexamethasone po 4 mg bid x 2 days, 2 mg bid x 2 days, 1 mg bid x 2 days [facility]OC DISCHARGE INSTRUCTIONS: HIP FRACTURE SELF CARE INSTRUCTIONS: A. You are to ambulate with a walker or crutches for approximately 6 weeks. B. You are WEIGHT BEARING TOLERATED on your operative lower extremity for at least 6 weeks. C. Wear low heeled shoes with non-slip soles D. Be sure that your floors are free of things that could trip you throw rugs, electrical cords, and small objects. Avoid wet and waxed floors, especially with crutches/walker/cane. E. Try to walk several times a day with rest periods between. F. You may shower 48 hours after surgery and get the incision area wet, but DO NOT soak or submerge incision area in water. (No baths, swimming pools, hot tubs) G. You may have a large, band-aid like dressing over your incision (Aquacel). This will remain on your incision for 7 days, and then can be removed. You CAN shower with this on. If incision is leaking through the dressing, please call the office . H. Do NOT apply soap or any ointment/lotions directly over incision. I. You may use ice as needed to operative site. SPECIAL CARE INSTRUCTIONS: VERY IMPORTANT TO READ AND REVIEW A. You may be at risk for phlebitis or blood clots. a. Wear surgical stockings (PEG hose) for 2 weeks after surgery to improve circulation and reduce swelling. b. Take LOVENOX 40mg SQ daily for 4 weeks or as directed. This is your blood thinner. c. If you are on Coumadin- you will have daily/weekly blood work to monitor your levels. This will be done by either your family physician/ wire brusher (if you are on Coumadin chronically) versus your orthopedic surgeon. Expect a phone call the day of or the day after your blood work is drawn to adjust your dose accordingly. B. There are a few signs you need to watch for after you are home. Call [facility] at [phone] if you experience any of the following: a. If you have a temperature of 101 degrees or higher. b. Sudden increase in pain in your hip not relieved by rest or pain medication. c. Any fluid or drainage from the incision; redness of the incision. d. Shortness of breath or chest pain. B. Please call [facility] at [phone] if you have any questions or concerns about your operation or recovery. C. Call your physician if: a. Temperature is greater than 101 degrees (F). b. Pain is not relieved by prescribed pain medications. c. Increase drainage or redness from incision. d. Unanswered questions or concerns. D. Pain Medication: a. You will be prescribed pain medication upon discharge that should last till your first post-operative appointment. b. If you experience nausea and/or skin rash, discontinue this medication and contact our office for an alternative medication. c. Caution- narcotic pain medication can cause constipation. FOLLOW UP VISIT: Please call [facility] at [phone] to schedule a follow up appointment 10-14 days from the date of your surgery date with Dr Day. Prescriptions: New bicalutamide 50 mg Tablet 50 mg PO QAM Qty: 30 RF: 0 losartan 50 mg Tablet 100 mg PO QAM Qty: 30 RF: 0 enoxaparin 40 mg/0.4 mL Syringe 40 mg subcut Q24H Qty: 21 RF: 0 sennosides [Senokot] 8.6 mg Tablet 17.2 mg PO QAM Qty: 30 RF: 0 ranitidine HCl 150 mg Tablet 150 mg PO BID Qty: 60 RF: 0 dexamethasone 4 mg Tablet 4 mg PO BID Qty: 14 RF: 0 oxycodone 5 mg Tablet 5 - 10 mg PO Q6H PRN (Reason: pain) Qty: 12 RF: 0 Continued metoprolol succinate [Toprol XL] 100 mg Tablet Extended Release 24 Hr 100 mg PO DAILY RF: 0 amlodipine 5 mg Tablet 5 mg PO DAILY RF: 0 aspirin [Aspirin Low Dose] 81 mg Tablet,Delayed Release (Dr/Ec) 81 mg PO DAILY RF: 0 losartan 100 mg Tablet 100 mg PO DAILY RF: 0 omega 2-coj-kno-fish oil [Fish Oil] 1,000 mg (120 mg-180 mg) Capsule 1 tab PO DAILY RF: 0 Centrum Silver 1 tab PO DAILY RF: 0 Discontinued oxycodone 5 mg tablet 5 mg PO Q6H PRN (Reason: pain) Qty: 28 RF: 0 Aleve PM 220-25 mg Tablet 2 tab PO PM PRN (Reason: Unknown) RF: 0 Stand-Alone Forms: [employer] [facility] Mobiotics, Opioid Pain Management Discharge Orders: Discharge Order (Routine); Ordered 05/13/18 Ordered By: Ellie Cohn Skilled Items Patient informed of condition?: Yes DNR: Yes Discharge Level of Care: Acute rehab Communicable Disease: No Discharge Prognosis: Stable Admission Data Admit Date/Time: 05/05/18 13:23 Attending Provider: Barry Harmon Admit Provider: Anayeli Lockwood Primary Care Provider: Ramu Duron Other Providers: Anayeli Lockwood ; Aldo Day ; Lauren Quezada. ; Radha Bird Service: Surgical Services
== END 2018-05-13 15:48 | DRG 481 ==
LOC: ED 09:49 → SUATTDRO 13:23 → 2N 13:23 → 3N 05-11 18:21
DX: M25.552 Pain in left hip; M25.512 Pain in left shoulder; Z79.82 Long term (current) use of aspirin; G89.3 Neoplasm related pain (acute) (chronic); D62 Acute posthemorrhagic anemia; K59.00 Constipation, unspecified; Z79.899 Other long term (current) drug therapy; Z66 Do not resuscitate; Z92.3 Personal history of irradiation; R53.1 Weakness; N17.9 Acute kidney failure, unspecified; I12.9 Hypertensive chronic kidney disease with stage 1 through stage 4 chronic kidney disease, or unspecified chronic kidney disease; N18.3 Chronic kidney disease, stage 3 (moderate); C79.51 Secondary malignant neoplasm of bone; E78.5 Hyperlipidemia, unspecified; C61 Malignant neoplasm of prostate; R13.10 Dysphagia, unspecified; E86.0 Dehydration